=== PATIENT | female | born 1975 | race Caucasian/White ===

== ENCOUNTER → 2024-01-05 18:57 | Outpatient (REF) | payer OTHER, SELFPAY | LOC: WDC 18:57 | PROVIDERS: ATTENDING PHYSICIAN Radiology Radiation Oncology; FAMILY PHYSICIAN Nurse Practitioner Family | DX: Z12.31 Encounter for screening mammogram for malignant neoplasm of breast (principal) | CPT/HCPCS: 77063; 77067 ==

== ENCOUNTER → 2024-07-12 09:48 | Outpatient (REF) | payer OTHER, SELFPAY | LOC: WDC 09:48 | PROVIDERS: ATTENDING PHYSICIAN Family Medicine Geriatric Medicine; FAMILY PHYSICIAN Nurse Practitioner Family | DX: R92.2 Inconclusive mammogram (principal) | CPT/HCPCS: 76641 ==

== ENCOUNTER → 2024-07-16 07:37 | Outpatient (REF) | payer OTHER, SELFPAY ==
--- NOTE | 2024-07-16 14:13 | OID.BR.INTR ---
OID Breast Navigator - Initial
- -
Date of Contact: 07/16/24
Met with patient. Reviewed navigator services available at [facility]. Will follow up as needed per protocol.
== END ==
LOC: WDC 07:37
PROVIDERS: ATTENDING PHYSICIAN Family Medicine Geriatric Medicine; FAMILY PHYSICIAN Nurse Practitioner Family
DX: N63.32 Unspecified lump in axillary tail of the left breast (principal)
CPT/HCPCS: 88305; 19083; A4648

== ENCOUNTER → 2024-08-03 07:36 | Outpatient (REF) | payer OTHER, SELFPAY | LOC: MRI 3T 07:36 | PROVIDERS: ATTENDING PHYSICIAN Surgery; FAMILY PHYSICIAN Nurse Practitioner Family | DX: C50.412 Malignant neoplasm of upper-outer quadrant of left female breast (principal); Z17.0 Estrogen receptor positive status [ER+] | CPT/HCPCS: 77049; A9585 ==

== ENCOUNTER → 2024-08-11 10:49 | Outpatient (REF) | payer OTHER, SELFPAY | LOC: RCS 10:49 | PROVIDERS: ATTENDING PHYSICIAN Internal Medicine Hematology & Oncology; FAMILY PHYSICIAN Nurse Practitioner Family | DX: C50.412 Malignant neoplasm of upper-outer quadrant of left female breast (principal) | CPT/HCPCS: 93306; 93356 ==

== ENCOUNTER → 2024-08-17 08:42 | Outpatient (REF) | payer OTHER, SELFPAY ==
[2024-08-17 09:11] VITALS: BP 119/73; BP_SYST 84
[2024-08-17] MEDS: ANCEF 10 IV (09:23)
[2024-08-17 11:00] VITALS: BP 127/57
== END ==
LOC: RADI 08:42
PROVIDERS: ATTENDING PHYSICIAN Internal Medicine Hematology & Oncology
DX: C50.412 Malignant neoplasm of upper-outer quadrant of left female breast (principal)
CPT/HCPCS: 36561; 76937; 77001; 99152; 99153; C1788

== ENCOUNTER → 2024-09-28 13:15 | Outpatient (REF) | payer OTHER, SELFPAY ==
[2024-09-28 14:27] LABS: Hematocrit 32.1 % (37.0-47.0); Hemoglobin 10.7 g/dL (12.0-16.0); Mean Corp Hgb Conc. 33.3 g/dL (33.0-37.0); Mean Corpuscular Hgb 27.7 pg (27.0-31.0); Mean Corpuscular Volume 83.2 fL (81.0-99.0); Mean Platelet Volume 10.3 fL (7.4-10.4); Platelet Count 208 10^3/uL (130-400); Red Blood Cell Count 3.86 10^6/uL (4.20-5.40); Red Cell Dist. Width 15.2 % (11.5-14.5); White Blood Cell Count 5.8 10^3/uL (4.8-10.8)
[2024-09-28 15:07] LABS: Absolute Neutrophils -Man Diff 3.3 10^3/uL (1.4-6.5); Band Neutrophils 1 % (0-3); Lymphocytes 15 % (20-51); Segmented Neutrophils 57 % (42-75)
[2024-09-28 15:08] LABS: Eosinophils 1 % (0-6); Metamyelocytes 1 % (-); Monocytes 20 % (2-9); Myelocytes 5 % (-); Normal RBC Morphology Yes; Platelets Checked Yes; Total Cells Counted 100
== END ==
LOC: REG 13:15
PROVIDERS: ATTENDING PHYSICIAN Internal Medicine Hematology & Oncology; FAMILY PHYSICIAN Nurse Practitioner Family
DX: C50.412 Malignant neoplasm of upper-outer quadrant of left female breast (principal)
CPT/HCPCS: 36415; 85025

== ENCOUNTER → 2024-10-12 08:23 | Outpatient (REF) | payer OTHER, SELFPAY ==
[2024-10-12 09:11] LABS: Hematocrit 31.2 % (37.0-47.0); Hemoglobin 10.4 g/dL (12.0-16.0); Mean Corp Hgb Conc. 33.3 g/dL (33.0-37.0); Mean Corpuscular Hgb 28.7 pg (27.0-31.0); Mean Corpuscular Volume 86.2 fL (81.0-99.0); Mean Platelet Volume 10.2 fL (7.4-10.4); Platelet Count 162 10^3/uL (130-400); Red Blood Cell Count 3.62 10^6/uL (4.20-5.40); Red Cell Dist. Width 17.1 % (11.5-14.5); White Blood Cell Count 3.6 10^3/uL (4.8-10.8)
[2024-10-12 09:51] LABS: ALT (SGPT) 19 U/L (0-35); AST (SGOT) 25 U/L (14-36); Albumin 3.9 g/dl (3.5-5.0); Alkaline Phosphatase 64 U/L (38-126); Blood Urea Nitrogen 9 mg/dl (7-17); Calcium 9.3 mg/dl (8.4-10.2); Carbon Dioxide 29 mmol/L (22-30); Chloride 105 mmol/L (98-107); Glucose 111 mg/dl (70-99); Potassium 4.5 mmol/L (3.5-5.1); Sodium 142 mmol/L (135-145); Total Bilirubin 0.4 mg/dl (0.2-1.3); Total Protein 6.2 g/dl (6.3-8.2); eGFR > 60.00
[2024-10-12 10:44] LABS: Absolute Neutrophils -Man Diff 1.9 10^3/uL (1.4-6.5); Band Neutrophils 8 % (0-3); Lymphocytes 16 % (20-51); Metamyelocytes 4 % (-); Monocytes 20 % (2-9); Myelocytes 7 % (-); Normal RBC Morphology Yes; Platelets Checked Yes; Segmented Neutrophils 45 % (42-75); Total Cells Counted 100
== END ==
LOC: REG 08:23
PROVIDERS: ATTENDING PHYSICIAN Internal Medicine Hematology & Oncology; FAMILY PHYSICIAN Nurse Practitioner Family
DX: C50.412 Malignant neoplasm of upper-outer quadrant of left female breast (principal)
CPT/HCPCS: 36415; 80053; 85025

== ENCOUNTER → 2024-10-15 14:42 | Outpatient (REF) | payer OTHER, SELFPAY | LOC: RCS 14:42 | PROVIDERS: ATTENDING PHYSICIAN Internal Medicine Cardiovascular Disease; FAMILY PHYSICIAN Nurse Practitioner Family | DX: R06.09 Other forms of dyspnea (principal); R00.0 Tachycardia, unspecified | CPT/HCPCS: 93306; 93356 ==

== ENCOUNTER → 2024-11-08 09:46 | Outpatient (REF) | payer OTHER, SELFPAY ==
[2024-11-08 10:30] LABS: % Basophils 1.6 % (0-2); % Eosinophils 6.9 % (0-6); % Immature Granulocytes 1.1 % (0-0.5); % Lymphocytes 14.6 % (20.5-51.1); % Monocytes 13.2 % (1.7-9.3); % Neutrophils 62.6 % (42.2-75.2); Absolute Basophils 0.1 10^3/uL (0-0.2); Absolute Eosinophils 0.3 10^3/uL (0-0.7); Absolute Lymphocytes 0.6 10^3/uL (1.2-3.4); Absolute Monocytes 0.5 10^3/uL (0.1-0.6); Absolute Neutrophils 2.4 10^3/uL (1.4-6.5); Hematocrit 33.1 % (37.0-47.0); Hemoglobin 11.1 g/dL (12.0-16.0); Mean Corp Hgb Conc. 33.5 g/dL (33.0-37.0); Mean Corpuscular Hgb 30.2 pg (27.0-31.0); Mean Corpuscular Volume 90.2 fL (81.0-99.0); Mean Platelet Volume 10.4 fL (7.4-10.4); Nucleated Red Blood Cells % 0 %; Platelet Count 201 10^3/uL (130-400); Red Blood Cell Count 3.67 10^6/uL (4.20-5.40); Red Cell Dist. Width 17.7 % (11.5-14.5); White Blood Cell Count 3.8 10^3/uL (4.8-10.8)
[2024-11-08 10:58] LABS: ALT (SGPT) 39 U/L (0-35); AST (SGOT) 37 U/L (14-36); Albumin 3.7 g/dl (3.5-5.0); Alkaline Phosphatase 47 U/L (38-126); Blood Urea Nitrogen 8 mg/dl (7-17); Calcium 9.1 mg/dl (8.4-10.2); Carbon Dioxide 27 mmol/L (22-30); Chloride 105 mmol/L (98-107); Glucose 109 mg/dl (70-99); Potassium 4.4 mmol/L (3.5-5.1); Sodium 139 mmol/L (135-145); Total Bilirubin 0.6 mg/dl (0.2-1.3); Total Protein 6.1 g/dl (6.3-8.2); eGFR > 60.00
== END ==
LOC: RAD 09:46
PROVIDERS: ATTENDING PHYSICIAN Internal Medicine Hematology & Oncology; FAMILY PHYSICIAN Nurse Practitioner Family
DX: C50.412 Malignant neoplasm of upper-outer quadrant of left female breast (principal)
CPT/HCPCS: 36415; 71046; 80053; 85025

== ENCOUNTER → 2024-11-11 15:32 | Outpatient (REF) | payer OTHER, SELFPAY | LOC: RAD 15:32 | PROVIDERS: ATTENDING PHYSICIAN Nurse Practitioner Adult Health | DX: C50.412 Malignant neoplasm of upper-outer quadrant of left female breast (principal) | CPT/HCPCS: 71260; Q9967 ==

== ENCOUNTER → 2024-11-15 09:12 | Outpatient (REF) | payer OTHER, SELFPAY ==
[2024-11-15 10:51] LABS: Hematocrit 32.1 % (37.0-47.0); Hemoglobin 10.5 g/dL (12.0-16.0); Mean Corp Hgb Conc. 32.7 g/dL (33.0-37.0); Mean Corpuscular Hgb 29.1 pg (27.0-31.0); Mean Corpuscular Volume 88.9 fL (81.0-99.0); Mean Platelet Volume 10.5 fL (7.4-10.4); Platelet Count 226 10^3/uL (130-400); Red Blood Cell Count 3.61 10^6/uL (4.20-5.40); Red Cell Dist. Width 16.8 % (11.5-14.5)
[2024-11-15 10:57] LABS: ALT (SGPT) 35 U/L (0-35); AST (SGOT) 34 U/L (14-36); Albumin 3.9 g/dl (3.5-5.0); Alkaline Phosphatase 55 U/L (38-126); Blood Urea Nitrogen 10 mg/dl (7-17); Calcium 9.1 mg/dl (8.4-10.2); Carbon Dioxide 27 mmol/L (22-30); Chloride 104 mmol/L (98-107); Glucose 115 mg/dl (70-99); Potassium 4.4 mmol/L (3.5-5.1); Sodium 140 mmol/L (135-145); Total Bilirubin 0.6 mg/dl (0.2-1.3); Total Protein 6.2 g/dl (6.3-8.2); eGFR > 60.00
[2024-11-15 11:50] LABS: Absolute Neutrophils -Man Diff 2.9 10^3/uL (1.4-6.5); Band Neutrophils 12 % (0-3); Eosinophils 9 % (0-6); Lymphocytes 12 % (20-51); Monocytes 20 % (2-9); Platelets Checked Yes; Segmented Neutrophils 47 % (42-75)
[2024-11-15 11:51] LABS: Anisocytosis 1+; Hypochromasia 1+; Normal RBC Morphology No; Ovalocytes 1+; Polychromasia 1+; Total Cells Counted 100
== END ==
LOC: REG 09:12
PROVIDERS: ATTENDING PHYSICIAN Internal Medicine Hematology & Oncology; FAMILY PHYSICIAN Nurse Practitioner Family
DX: C50.412 Malignant neoplasm of upper-outer quadrant of left female breast (principal)
CPT/HCPCS: 36415; 80053; 85025

== ENCOUNTER → 2024-12-06 18:37 | Outpatient (REF) | payer OTHER, SELFPAY | LOC: MRI 3T 18:37 | PROVIDERS: ATTENDING PHYSICIAN Internal Medicine Hematology & Oncology; FAMILY PHYSICIAN Nurse Practitioner Family | DX: C50.412 Malignant neoplasm of upper-outer quadrant of left female breast (principal) | CPT/HCPCS: 77049; A9585 ==

== ENCOUNTER → 2024-12-07 16:54 | Outpatient (REF) | payer OTHER, SELFPAY | LOC: RAD 16:54 | PROVIDERS: ATTENDING PHYSICIAN Surgery Plastic and Reconstructive Surgery; FAMILY PHYSICIAN Nurse Practitioner Family | DX: C50.912 Malignant neoplasm of unspecified site of left female breast (principal) | CPT/HCPCS: 74174; Q9967 ==

== ENCOUNTER → 2024-12-22 07:55 | Outpatient (REF) | payer OTHER, SELFPAY | LOC: RCS 07:55 | PROVIDERS: ATTENDING PHYSICIAN Surgery Plastic and Reconstructive Surgery; FAMILY PHYSICIAN Nurse Practitioner Family | DX: C50.412 Malignant neoplasm of upper-outer quadrant of left female breast (principal) | CPT/HCPCS: 93005 ==

== ENCOUNTER → 2024-12-23 08:17 | Outpatient (REF) | payer OTHER, SELFPAY | LOC: WDC 08:17 | PROVIDERS: ATTENDING PHYSICIAN Surgery | DX: C50.412 Malignant neoplasm of upper-outer quadrant of left female breast (principal) | CPT/HCPCS: 38792; 76942; A9541 ==

== ENCOUNTER 2024-12-24 07:33 | Inpatient (IN) | payer OTHER, SELFPAY ==
[2024-12-15 11:09] LABS: Mean Corp Hgb Conc. 32.5 g/dL (33.0-37.0); Mean Corpuscular Hgb 28.5 pg (27.0-31.0); Mean Corpuscular Volume 87.7 fL (81.0-99.0); Mean Platelet Volume 11.1 fL (7.4-10.4); Platelet Count 222 10^3/uL (130-400); Red Blood Cell Count 4.56 10^6/uL (4.20-5.40); Red Cell Dist. Width 14.1 % (11.5-14.5); White Blood Cell Count 4.6 10^3/uL (4.8-10.8)
[2024-12-15 11:52] LABS: ALT (SGPT) 39 U/L (0-35); AST (SGOT) 37 U/L (14-36); Albumin 4.4 g/dl (3.5-5.0); Alkaline Phosphatase 53 U/L (38-126); Blood Urea Nitrogen 11 mg/dl (7-17); Calcium 9.7 mg/dl (8.4-10.2); Carbon Dioxide 29 mmol/L (22-30); Chloride 106 mmol/L (98-107); Glucose 113 mg/dl (70-99); Potassium 4.7 mmol/L (3.5-5.1); Sodium 142 mmol/L (135-145); Total Bilirubin 0.5 mg/dl (0.2-1.3); Total Protein 7.5 g/dl (6.3-8.2); eGFR > 60.00
[2024-12-15 11:58] LABS: Prealbumin (Transthyretin) 23.7 mg/dl (17.6-36.0)
[2024-12-15 12:11] LABS: Vitamin D, 25-OH*** 34.2 ng/mL (30-80)
[2024-12-15 13:30] VITALS: BMI 34.9
[2024-12-24] VITALS (14 sets, daily range): BP systolic 0–126; BP diastolic 49–77; BMI 34.9
[2024-12-24] MEDS: LOVENOX 40 MG SC (08:11)
[2024-12-24] MEDS: NORMOSOL-R/PLASMALYTE-A 1000 IV (08:12)
[2024-12-24] MEDS: TRANSDERM-SCOP 1 PATCH TRANSDERM (08:12)
[2024-12-24] MEDS: TYLENOL 1000 MG PO ×2 (08:12→17:51)
--- NOTE | 2024-12-24 08:29 | W.SUR.PREOP ---
Pre-Operative Surgical Note
-
I have examined this patient prior to the performance of the scheduled procedure.
The patient's condition is unchanged from the time of the current History and
Physical and the patient is able to undergo the scheduled procedure.
--- NOTE | 2024-12-24 13:29 | W.IMMPOSTOP ---
Surgical Immed Post Op Note
-
Primary Surgeon: PÉREZ Mae MD
Assisting Surgeon:
Pre-op Diagnosis: left breast cancer
Post-op Diagnosis: same
Procedure Performed: immediate reconstruction of bilateral breast with tissue expanders
Anesthesia Type: General
Specimen / Cultures: Per Dr. Thacker
Estimated Blood Loss: 30 cc
Complications: none
Operative Findings: as expected
--- NOTE | 2024-12-24 13:30 | OR.RPT ---
Operative Report
Operative Report
Date of surgery: 12/24/2024
Surgeon: PÉREZ Mae MD
Preoperative diagnosis: Breast cancer
Postoperative diagnosis: Same
Procedure:
1. Bilateral immediate breast reconstruction with prepectoral tissue expanders
Complications: None
Anesthesia: General
EBL: 30cc total
Employee Benefits Administrator size: 13 cm
Indications for procedure: Patient was referred to me by Dr. Thacker with a recent diagnosis of recurrent breast cancer. She was planned to undergo bilateral mastectomy. We discussed her options for breast reconstruction at length including
implant based and autologous options. The patient opted for immediate reconstruction with tissue expanders. She understands that the final reconstruction will be staged. We also discussed the possible use of ADM and spy angiography. Risks
include reconstructive failure, capsular contracture, infection, delayed wound healing, mastectomy skin flap necrosis, hematoma, seroma and need for repeat procedure. Patient understood these risks and desired to proceed. Consents were signed
accordingly.
Procedure in detail: Patient was identified the preoperative area and the surgical site was confirmed to be the bilateral breast. All questions were answered and consents were confirmed. Patient was then sat upright and normal anatomical landmarks
were marked including midline and inframammary fold. Patient was then taken back to the operating room placed supine on the table. She was prepped and draped in the usual sterile fashion using ChloraPrep solution. A Sandoval catheter was placed. A
timeout for patient safety was performed was confirmed that bilateral SCDs were in place and preoperative antibiotics administered. The procedure began with Dr. Thacker first performing the mastectomy. Her op report will be dictated separately.
When I entered the procedure, the first sided mastectomy had been completed. As such I inspected the wound bed of the chest wall and ensured meticulous hemostasis. The base width was measured and appropriate tissue certified diabetes educator was selected. The
certified diabetes educator was then sutured to the chest wall with a series of 2-0 silk sutures. Pectoralis and intercostal blocks were performed with Marcaine. 2 drains were then placed in the preaxial area line with a long subcutaneous tunnel and sutured in place
with 2-0 Prolene sutures. The wound was irrigated with double antibiotic solution and dilute Betadine. The mastectomy incisions were then closed with a series of 2-0 Vicryl's in the deep subcutaneous tissues followed by 3-0 and 4-0 Monocryl's in
the deep dermis and superficial skin.
Attention was then placed on the contralateral side after completion of the mastectomy. The exact same procedure was performed. An certified diabetes educator of the same size was opened and soaked in Betadine. The construct was then sutured to the chest wall using
2-0 silks. Pectoralis and intercostal blocks were performed. Meticulous hemostasis was ensured and the wound was irrigated with combination of double antibiotic solution consisting of Ancef and gentamicin as well as dilute Betadine. The wound was
closed in layers with 2-0 Vicryl followed by 3-0 Monocryl and 4-0 Monocryl superficial skin.
The wounds were dressed accordingly and a supportive bra was placed. The patient was extubated taken to the PACU for further care. All counts were correct at the end the case was performed out complication.
--- NOTE | 2024-12-24 13:56 | W.IMMPOSTOP ---
Surgical Immed Post Op Note
-
Primary Surgeon: Kedar
Assisting Surgeon: None
Pre-op Diagnosis: Recurrent left breast carcinoma
Post-op Diagnosis: Same
Procedure Performed: Bilateral mastectomies, targeted left axillary dissection
Anesthesia Type: GET
Specimen / Cultures: bilateral breasts, left sentinel lymph nodes and axillary contents
Estimated Blood Loss: 25cc
Complications: None
Operative Findings: None
--- NOTE | 2024-12-24 13:58 | OR.RPT ---
Operative Report
Operative Report
Date of surgery: 12/24/2024
Preoperative diagnosis: Recurrent left breast carcinoma
Postoperative diagnosis: Same
Surgeon: Kedar
Procedure: Bilateral mastectomies, targeted left axillary lymph node sampling and dissection
Patient is a 49-year-old female who been treated for left-sided breast carcinoma approximately 3 years ago. She presented with recurrence in her axilla. 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
tissue. The patient received neoadjuvant chemotherapy and the patient underwent technetium radiotracer injection on the day prior to the procedure. She plans to have immediate reconstruction initially with tissue expanders to be followed later by
bilateral FARIBA flaps.
The patient presented to same-day surgical services where she was prepped. Plastic surgery marked her incisions were which were in a vertical pattern incorporating removal of the nipple areolar complex. DVT and antibiotic prophylaxis were
provided. She was taken to the operating room. In the supine position, general anesthesia was induced. Sandoval catheter was inserted using aseptic technique and both breasts were prepped and draped in the usual sterile fashion. I began the
procedure by performing the right lumpectomy. A circumareolar incision was made sharply with the blade. Skin flaps were elevated using the PlasmaBlade and a lighted retractor. Dissection was carried down to the pectoralis fascia and the breast
was taken off the chest wall in a superior to inferior direction. The specimen was oriented for the pathologist and sent for permanent analysis. Hemostasis was verified and a moist pack was placed in the resection cavity. At this juncture plastic
surgery entered to begin the reconstructive portion of the procedure.
Then attention was turned to the left side where in the same manner, a mastectomy was performed, however, due to the neoadjuvant chemotherapy, blue dye was injected into the breast parenchyma. External massage was applied for 5 minutes. Skin flaps
on this side were raised in the same fashion as on the right. The breast was taken off the chest wall and the specimen was oriented for the pathologist and sent for permanent analysis. A very fibrous reaction in the left axillary tail towards the
axilla was encountered. Old scar was mobilized and dissection was carried down to clavipectoral fascia. Using the gamma probe and visualization of the blue dye four sentinel node packets were encountered and excised. Clinically these were
consistent with fibrofatty tissue that looked reactive to prior treatment. Additional palpable probable nodes were excised as well. An intercostal brachial nerve was preserved throughout its course and care was taken not to dissect on or above the
axillary vein. Tissues of the axilla were sent en bloc and hemoclips were placed to the note the boundaries of the axilla. A moist pack was placed on this side and plastic surgery to be began reconstruction on the left side.
At this juncture all sponge needle instrument counts were correct.
([id number])
Darrow Node Bx Breast Cancer
Darrow Node Bx Breast Cancer
Operation performed with curative intent: Yes
Tracer(s) to ID Darrow Nodes in Non-Neoadjuvant setting: N/A
Tracer(s) to ID Sentinal Nodes in the Neoadjuvant Setting: Dye and Radioactive Tracer
All nodes at end of dye-filled Lymphatic Channel removed: Yes
All Significantly Radioactive Nodes were removed: Yes
All Palpably Suspicious Nodes were Removed: Yes
Bx Proven Pos Nodes Marked Prior to Chemo ID'd & Removed: Yes
[2024-12-24] MEDS: SUBLIMAZE 25 MCG IV ×4 (14:06→15:12)
[2024-12-24] MEDS: NEURONTIN 300 MG PO ×2 (17:51→21:21)
[2024-12-24] MEDS: ANCEF 5 IV (21:21)
[2024-12-25] MEDS: TYLENOL 1000 MG PO ×3 (00:01→12:02)
[2024-12-25 03:15] VITALS: BP 99/62
[2024-12-25] MEDS: ANCEF 5 IV (05:14)
[2024-12-25 05:17] LABS: Hematocrit 34.7 % (37.0-47.0); Hemoglobin 11.3 g/dL (12.0-16.0)
[2024-12-25 05:42] LABS: Blood Urea Nitrogen 9 mg/dl (7-17); Carbon Dioxide 27 mmol/L (22-30); Chloride 110 mmol/L (98-107); Estimated Creatinine Clearance > 125 ml/min; Glucose 111 mg/dl (70-99); Potassium 4.4 mmol/L (3.5-5.1); Sodium 140 mmol/L (135-145); eGFR > 60.00
[2024-12-25 07:00] VITALS: BP 143/64
--- NOTE | 2024-12-25 08:35 | W.PN.PLAS ---
Progress Note
Subjective Data
Doing well
Denies SOB
Objective Data
Vital Signs
Temp Pulse Resp BP Pulse Ox
98 F 82 18 143/64 96
12/25/24 07:00 12/25/24 07:00 12/25/24 07:00 12/25/24 07:00 12/25/24 07:00
Intake and Output
12/24/24 12/25/24 12/26/24
06:59 06:59 06:59
Intake Total 630 / 630
Output Total 570 / 570
Balance 60 / 60
Intake:
Oral fluids 480 / 480
IV fluids (Total) 150 / 150
normosol 150 / 150
Output:
Drain Output (Total) 220 / 220
Left Breast Dov-Mas A 65 / 65
Left Breast Dov-Mas B 20 / 20
Right Breast Dov-Mas A 75 / 75
Right Breast Dov-Mas B 60 / 60
Urine, Sandoval 350 / 350
Other:
Number of approximated MODERATE 2
amounts of urine
PEx:
NAD
No increased WOB
Bilateral breasts with expanders in place
No undrained collections
Drains serosang with appropriate output
Lab Results
12/25/24 04:40
12/25/24 04:40
Assessment / Plan
s/p bilateral mastectomy and immediate recyclable materials sorter reconstruction
Discharge to home with VN
[2024-12-25] MEDS: NEURONTIN 300 MG PO (08:37)
[2024-12-25] MEDS: ZOLOFT 100 MG PO (08:37)
[2024-12-25 11:00] VITALS: BP 135/65
--- NOTE | 2024-12-25 11:06 | CM ---
Initial assessment completed with patient with and son in the room. Patient lives with her and 4 children (12-14-18-20 y/o) in a 2 story home plus basement with B/B on 2nd and 1/2 bath on 1st, 2 steps to enter. SECOND VP HR ASSESSMENT patient was
independent in ADL's and ambulation and drove.
No DME or in-home services. Does have a HC-POA. INTERNAL SPECIALIST is Kiara Whitlock and pharmacy is [facility] in [place]. Discharge POC: Home with [facility] RN services.
--- NOTE | 2024-12-25 13:19 | CM ---
Patient has been medically cleared for discharge to home with [facility] VN services. HH aware that services are to begin Friday12/26/24 for drain care. transported home.
== END 2024-12-25 12:45 | disposition home health service (06) | DRG 581 ==
LOC: 2 SOUTH 07:33
PROVIDERS: ADMITTING PHYSICIAN Surgery Plastic and Reconstructive Surgery; ATTENDING PHYSICIAN Surgery; FAMILY PHYSICIAN Nurse Practitioner Family
PROC: 0HHV0NZ Insertion of Tissue Expander into Bilateral Breast, Open Approach (ICD-10-PCS; 2024-12-24)
PROC: 07B60ZX Excision of Left Axillary Lymphatic, Open Approach, Diagnostic (ICD-10-PCS; 2024-12-24)
PROC: 0HTV0ZZ Resection of Bilateral Breast, Open Approach (ICD-10-PCS; 2024-12-24)
DX: C50.912 Malignant neoplasm of unspecified site of left female breast (principal); Z92.3 Personal history of irradiation; Z92.21 Personal history of antineoplastic chemotherapy
CPT/HCPCS: 36415; 80048; 80053; 82306; 84134; 85014; 85018; 85027; 88305; 88307; 88331; 88332; 88341; 88342; 97166; C1729; C1789; L8000

== ENCOUNTER → 2025-01-10 08:56 | Outpatient (REF) | payer OTHER, SELFPAY ==
[2025-01-10 09:58] LABS: Hematocrit 38.9 % (37.0-47.0); Hemoglobin 12.4 g/dL (12.0-16.0); Mean Corp Hgb Conc. 31.9 g/dL (33.0-37.0); Mean Corpuscular Volume 85.3 fL (81.0-99.0); Nucleated Red Blood Cells % 0 %; Platelet Count 218 10^3/uL (130-400); Red Cell Dist. Width 14.0 % (11.5-14.5)
[2025-01-10 11:15] LABS: ALT (SGPT) 28 U/L (0-35); AST (SGOT) 34 U/L (14-36); Albumin 4.2 g/dl (3.5-5.0); Alkaline Phosphatase 55 U/L (38-126); Blood Urea Nitrogen 13 mg/dl (7-17); Calcium 9.7 mg/dl (8.4-10.2); Carbon Dioxide 30 mmol/L (22-30); Chloride 106 mmol/L (98-107); Glucose 139 mg/dl (70-99); Potassium 4.7 mmol/L (3.5-5.1); Sodium 140 mmol/L (135-145); Total Protein 6.9 g/dl (6.3-8.2); eGFR > 60.00
== END ==
LOC: REG 08:56
PROVIDERS: ATTENDING PHYSICIAN Internal Medicine Hematology & Oncology; FAMILY PHYSICIAN Nurse Practitioner Family
DX: C50.412 Malignant neoplasm of upper-outer quadrant of left female breast (principal)
CPT/HCPCS: 36415; 80053; 85025

== ENCOUNTER 2025-01-25 06:07 | Inpatient (IN) | payer OTHER, SELFPAY ==
[2025-01-25] VITALS (20 sets, daily range): BP systolic 103–131; BP diastolic 55–80; BMI 35.2
[2025-01-25] MEDS: NORMOSOL-R/PLASMALYTE-A 1000 IV (06:48)
[2025-01-25] MEDS: LOVENOX 40 MG SC (06:48)
--- NOTE | 2025-01-25 07:14 | W.SUR.PREOP ---
Pre-Operative Surgical Note
-
I have examined this patient prior to the performance of the scheduled procedure.
The patient's condition is unchanged from the time of the current History and
Physical and the patient is able to undergo the scheduled procedure.
The patient will also undergo port removal today.
--- NOTE | 2025-01-25 15:39 | OR.RPT ---
Operative Report
Operative Report
Date of Service: 01/25/25
Surgeon: Roland Wilks MD
Co-Surgeon: Deniz Mae MD
Assisting Surgeon: Lou Thacker MD
Preoperative diagnosis:
1. Personal history of breast cancer
2. 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
3. Prior left breast radiation
Postoperative diagnosis: Same
Procedure:
1. Bilateral removal of tissue expanders without replacement
2. Bilateral capsulotomies and partial capsulectomies
3. Bilateral delayed FARIBA flap breast reconstruction
4. Bilateral local tissue rearrangements of the breasts measuring 4x4cm on each side
5. Right internal mammary lymph node biopsy
6. Application of BEATRIZ disposable negative pressure incisional wound VAC.
Anesthesia: General
EBL: 150 cc
Specimens:
1. Right internal mammary lymph node
2. Right mastectomy skin and soft tissue
3. Left mastectomy skin and soft tissue
Drains: 4 15 [place] Rey drains
Complications: None
Indications: This is a 49-year-old female who has a history of breast cancer and bilateral mastectomies with lead php developer based breast reconstruction. She has a history of left breast radiation and had decided to move forward with autologous
reconstruction. She was referred to me by her primary plastic surgeon, Dr. Mae. I discussed the various options available to her. She was interested in pursuing autologous reconstruction with tissue from her abdomen and she had acceptable donor
site. Risks of the procedure were discussed including flap failure, return to OR for arterial or venous thrombosis, wound healing issues, donor site morbidity to the abdomen and VTE.� We reviewed the nature of the procedure and the risk benefits and
alternatives at length.� All her questions were answered.� Consent was signed prior to surgery.
Operative findings:
The patient was brought to the operating room and placed supine on the operating room table. General anesthesia was induced with endotracheal tube.� A Sandoval catheter was placed.� Patient was prepped and draped in the standard fashion using
chlorhexidine prep.� A timeout was performed.
Dr. Mae and I started the dissection of the flaps in the abdomen together until we were able to confirm the flap dimensions and start the clinical coordinator dissection. Once i starting performing the clinical coordinator dissection on the right hemiabdomen, "Vanessa"Tu went up to the left chest to perform the internal mammary vessel dissection.� This involved dissection of the abdominal wall and identification of perforating vessels into the abdominal flaps bilaterally.� On the patient's right side a 4
clinical coordinator FARIBA flap was dissected.� This involved minimal muscle to minimize the morbidity to the abdominal wall.� The flap was dissected down to the source vessels where the inferior epigastrics were coming off of the external iliac. The abdominal
vessel dissection was particularly challenging due to the multiple prior C-sections the patient had. Her mammary vessel dissection was also difficult due to her prior radiation.
On the contralateral side another 3 clinical coordinator FARIBA flap was also dissected.� This similarly involved a tedious dissection where the inferior epigastrics were traced down to their source vessel in a muscle sparing approach.
As Tu Sheets was working on the left jasmine abdomen, I then performed the internal mammary vessel dissection on the left side.
On both sides, the lead php developer was removed and extensive capsulotomies were performed to radially expand the pocket. The third rib was resected bilaterally. The internal mammary arteries and veins were identified and carefully circumferentially
dissected. Internal mammary lymph nodes were encountered on the right and these were sent off for pathologic evaluation.
The right flap was harvested from the abdomen and transferred to the left chest wall first as this was the radiated side.� Microvascular anastomosis was then performed to the internal mammary vessels.� This was done using a 2.5 millimeter armature winder helper repair
for the venous anastomosis.� The arterial anastomosis was performed using 8-0 nylon suture in the normal standard fashion.
After the microvascular anastomosis was performed there was excellent perfusion of the flap.� This was temporarily inset and attention was turned to the contralateral breast.
The right hemiabdomen was then transferred to the left chest wall.� The identical procedure was then performed from a microvascular perspective.� This side was with a 4.0 mm armature winder helper repair for the venous anastomosis and 8-0 nylon suture for the arterial
anastomosis. This flap similarly had excellent perfusion afterwards.
While I was performing a microvascular anastomosis on the chest wall, my co-surgeon, Dr. Mae, was dissecting the other FARIBA flap in the abdomen.� We then switched roles for the contralateral sides.
The abdominal wall was reconstructed using a piece of phasix mesh in an underlay fashion.� The fascia was primarily closed bilaterally. The abdominal wall was then closed in a layered fashion.� This was done after performing a tap block using
marcaine divided evenly amongst the hemiabdomens.� Two 15 [place] rey drains were placed in the abdomen.� These were secured using 2-0 Prolene sutures.� The Urvashi's fascia was then reapproximated using 2-0 Vicryl suture.� The skin was then closed
in a layered fashion using insorb dermal daniel and a running Monocryl suture.
Bilateral pec and intercostal blocks were performed with marcaine and a 15 [place] rey drain was placed in each breast pocket.� These were also secured using 2-0 Prolene sutures.�
The breast flaps were then de-epithelialized and inset.�The breast skin was then further revised using 42mm cookie cutters to create a new window for the skin paddle bilaterally. This resulted in a 4x4cm local tissue rearrangement on each side. The
incisions were then closed in layered fashion using 3-0 and 4-0 Monocryl suture.� All incisions were dressed with Dermabond glue.� Hand-held Doppler signals were found in the reconstructed breasts and these were marked with a 5-0 Prolene suture. A
BEATRIZ incisional wound VAC was applied to the abdominal incision.
The patient tolerated the procedure very well.� All counts were correct at the completion of the case.� The patient was then extubated uneventfully and transferred to the ICU in stable condition.
Dr. Lalitah Mae was my co-surgeon for this case.� His status as a co-surgeon was critical and allowing us to function as two separate teams.� This allowed us to operate simultaneously on both the breasts and on each side of the abdomen.� This
was essential for the appropriate safety and efficiency of this procedure.
Dr. Thacker was our certified nursing assistant instructor for this case. She played a primary role in reconstructing the abdominal wall and her assistance was critical to allow for us to execute the surgery in a safe and timely manner.
--- NOTE | 2025-01-25 15:39 | OR.RPT ---
Operative Report
Operative Report
Date of operation: 01/25/2025
Surgeon: Kedar
Preoperative diagnosis: Left breast carcinoma status post bilateral mastectomies, bilateral tissue community integration specialist placement and chemotherapy
Postoperative diagnosis: Same
Procedure: removal of right Port-A-Cath, removal bilateral expanders, assist with bilateral FARIBA flaps, closure of iatrogenic ventral hernias with mesh
The patient is a 49-year-old female who underwent treatment for invasive lobular carcinoma of the left breast in 2021. She had a recurrence of the lobular carcinoma and underwent bilateral mastectomies, sentinel lymph node mapping and biopsy, and
Port-A-Cath placement for adjuvant chemotherapy. For the breast cancer in 2021, she did undergo postoperative radiotherapy. She had bilateral tissue expanders placed with planned delayed reconstruction with bilateral FARIBA flaps. Her port will be
removed and I will assist the plastic surgeons with the flaps and abdominal wall closure.
The patient presented to same-day surgical services where she was identified and prepped. DVT and antibiotic prophylaxis were provided. She was taken to the operating room and in the supine position general anesthesia was induced. Sandoval catheter
was inserted using aseptic technique and the chest and abdomen were prepped and draped in the usual sterile fashion. All team members performed an appropriate timeout procedure.
I incised the previous breast incisions which were vertical; the incision on the right side the was slightly hypertrophied and irregular and this was excised sharply. This led to the community integration specialist cavity allowing for community integration specialist removal. Moist packs were
placed and this procedure was performed on left sides. Concerning the right sided port, the incision site was excised as it had a hypertrophic scar. Dissection was carried down to the port pocket using the cautery and the port easily extruded.
The catheter was removed from the vascular tract intact and the tract was suture-ligated with 3-0 plain gut. Hemostasis was obtained with the cautery. The incision was closed using simple interrupted 3-0 plain on deep and subcutaneous tissue and
skin was closed with running subcuticular 4-0 Monocryl.
Then I assisted plastic surgeons through various phases of the FARIBA flap procedure. Once the flaps were harvested,there was a resulting defect in both anterior abdominal ronquillo. On the right side the defect was 2 x 15 cm. the defect on the left
side was 15 x 4 cm. A portion of Phasix mesh was cut and fashioned and placed under the anterior fascia. This was secured using simple interrupted figure of eight 0- PDS. Then an over locking STRATAFIX suture was run along the entire length of
the incision. Bilateral tap block was performed using .25% Marcaine on each side. Rey drains were passed through the inferior abdominal wall opening and secured to the skin using 2-0 Prolene suture. Once the anastomoses were performed by the
plastic surgeons then the abdominal wall diastases was imbricated by Dr. Mae as described in his dictation. Closure was as described in the Plastic surgeons dictations.
[id number]
--- NOTE | 2025-01-25 16:30 | CON.INTV ---
Consultation
Consultation Request
Date/Time Consultation Requested: 01/25/2025
Date/Time Consultation Performed: 01/25/2025
Requesting Provider: Dr. Mae
Performing Provider: Dr. Castrejon
Reason for Consultation: s/p FARIBA flap breast reconstruction
Medical History
-
Chief Complaint: Elective FARIBA flap breast reconstruction
History of Present Illness:
49-year-old F with PMHx of left-sided invasive breast lobular carcinoma (Dx 01/26/2021 - ER/VA +, HER2 -) s/p bilateral mastectomy + chemotherapy, asthma and seasonal allergies who p/w elective breast reconstruction. Pt follows with Dr. Thacker with
Breast Surgery as an outpatient - last visit 12/03/2024. She has Hx of left breast lumpectomy with SNL mapping and biopsy on 02/23/2021. She had received chemotherapy in Fall 2020 through [facility] via Dr. Schroeder. She has also
undergone radiation to her left breast. 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 She continued to obtain mammogram +
breast ultrasounds. Breast US on 07/12/2024 showed abnormal left axilla adenopathy. She underwent US-core needle Bx of her left axillary LN on 07/16/2024 and pathology showed recurrent invasive lobular carcinoma, which was ER +, and VA and HER2 -.
PET/CT on 07/29/2024 showed no evidence of metastasis. She has neoadjuvant chemo starting on 08/18/[address] Schroeder. She completed her chemo, and she underwent bilateral mastectomy with targeted left axillary dissection with immediate prepectoral
tissue yeast tender reconstruction on 12/24/2024. Today, she is here for removal of her expanders and for bilateral delayed FARIBA flap breast reconstruction. She also underwent right internal mammary LN biopsy, and removal of her right-sided
port-A-cath. EBL was 150cc with no immediate complications. She was TRX to ICU post-operatively, and [employer] consulted for additional recommendations/management.
PMHx: Left breast lobular carcinoma (2020) s/p lumpectomy + chemoradiation (2020), recurrent L-breast lobular carcinoma s/p neoadjuvant chemotherapy + bilateral mastectomy with immediate yeast tender reconstruction, asthma, seasonal allergies
PSHx: x4, D&C, left breast lumpectomy and SLN mapping (2020), bilateral mastectomies and left SLN resection, right port placement, BSO
Past Medical History
Past Medical History: Other (Above as per HPI)
Past Surgical History: Other (Above as per HPI)
Social History
Tobacco: Non-smoker
Alcohol: Occasional (socially)
Drug: None
Family History
Family History: Cancer (Mother + sister: Leukemia; Maternal grandmother: Breast cancer) and Diabetes (Father)
Allergies / Home Medications
Allergies
Allergy/AdvReac Type Severity Reaction Status Date / Time
pollen extracts Allergy SEASONAL Verified 01/25/25 06:35
ALLERGY
Home Medications
�Medication �Instructions �Recorded �Confirmed �Last Taken �Type
lidocaine-prilocaine 2.5 %-2.5 % 2.5 g topical ONCE 08/13/24 01/25/25 Unknown History
topical cream
albuterol sulfate 90 mcg/actuation 2 puff inhalation Q6H PRN SOB 12/17/24 01/25/25 Unknown History
aerosol inhaler
loratadine 10 mg tablet (Claritin) 10 mg PO DAILY 12/17/24 01/25/25 12/22/24 History
multivitamin 1 tab PO DAILY 12/17/24 01/25/25 1 Week Ago History
~01/18/25
diazepam 5 mg tablet 5 mg PO TIDPRN PRN Muscle Spasms 12/25/24 01/25/25 1 Week Ago Rx
14 days #42 tabs ~01/18/25
gabapentin 300 mg capsule 300 mg PO TID 90 days #270 caps 12/25/24 01/25/25 01/24/25 18:00 Rx
oxycodone 5 mg tablet 5 mg PO Q6HPRN PRN breakthrough 12/25/24 01/25/25 2 Weeks Ago Rx
mod-severe pain 14 days #20 tabs ~01/11/25
acetaminophen 500 mg tablet 1,000 mg PO Q6 PRN pain 01/20/25 01/25/25 01/22/25 History
(Tylenol Extra Strength)
sertraline 100 mg tablet 100 mg PO DAILY 01/20/25 01/25/25 01/24/25 09:00 History
Review of Systems
-
Unable to Obtain full review of systems at this time due to: Acuity (lethargic after arriving to ICU s/p OR due to sedation)
Vitals / Labs / Diagnostic Testing
Vital Signs
Temp Pulse Resp BP Pulse Ox
99.2 F 92 10 114/63 91
01/25/25 17:00 01/25/25 17:30 01/25/25 17:30 01/25/25 17:30 01/25/25 17:30
Lab Data
01/25/25 16:26
01/25/25 16:26
Laboratory Results
01/25/25
16:26
PT 14.1
INR 1.05
APTT 25.6
Diagnostic Testing:
Physical Exam
-
HEENT: Normocephalic and Anicteric
Cardiovascular: S1/S2 and Peripheral Edema (negative)
Respiratory: Wheeze (negative), Rales (negative), Rhonchi (negative) and Non-Labored Respirations
GI: Soft, Non Distended, Tender and Normal Bowel Sounds
Neurology: Tremors (negative) and Other (Lethargic due to recent sedation from OR)
Skin: Warm and Dry
General: Respiratory Distress (negative), Comfortable, Chills (negative) and Sweats (negative)
Assessment
-
Assessment: 49-year-old F with PMHx of left-sided invasive breast lobular carcinoma (Dx 01/26/2021 - ER/VA +, HER2 -) s/p lumpectomy + chemoradiation (2020), recurrent L-breast lobular carcinoma (ER+) s/p neoadjuvant chemotherapy + bilateral
mastectomy with immediate yeast tender reconstruction, asthma and seasonal allergies who p/w elective breast reconstruction. Pt follows with Dr. Thacker with Breast Surgery as an outpatient - last visit 12/03/2024. She has Hx of left breast lumpectomy
with SNL mapping and biopsy on 02/23/2021. She had received chemotherapy in Fall 2020 through [facility] via Dr. Schroeder. She has also undergone radiation to her left breast. She underwent genetic testing in February 2021 and this
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 She continued to obtain mammogram + breast ultrasounds. Breast US on 07/12/2024 showed abnormal left axilla adenopathy. She
underwent US-core needle Bx of her left axillary LN on 07/16/2024 and pathology showed recurrent invasive lobular carcinoma, which was ER +, and VA and HER2 -. PET/CT on 07/29/2024 showed no evidence of metastasis. She has neoadjuvant chemo starting
on 08/18/[address] Schroeder. She completed her chemo, and she underwent bilateral mastectomy with targeted left axillary dissection with immediate prepectoral tissue yeast tender reconstruction on 12/24/2024. Today, she is here for removal of her
expanders and for bilateral delayed FARIBA flap breast reconstruction. She also underwent right internal mammary LN biopsy, and removal of her right-sided port-A-cath. EBL was 150cc with no immediate complications. She was TRX to ICU
post-operatively, and [employer] consulted for additional recommendations/management.
Chronic conditions [employer]: Left breast lobular carcinoma (2020) s/p lumpectomy + chemoradiation (2020), recurrent L-breast lobular carcinoma s/p neoadjuvant chemotherapy + bilateral mastectomy with immediate yeast tender reconstruction, asthma, seasonal
allergies
Impression:
#Left breast lobular carcinoma (2020 - ER/VA +, HER2-) s/p lumpectomy + chemoradiation (2021), recurrent L-breast lobular carcinoma (ER+, VA and HER2-) s/p neoadjuvant chemotherapy + bilateral mastectomy with immediate yeast tender reconstruction now
with right Port-A-Cath removal, bilateral tissue yeast tender removal, bilateral capsulotomies and partial capsulectomies, bilateral delayed FARIBA flap breast reconstruction with bilateral local breast tissue rearrangement (POD #0)
#Iatrogenic ventral hernia s/p closure with mesh (POD #0)
#Mild intermittent asthma
#Hx of heterozygous NBN gene pathogenic variant s/p prophylactic BSO (06/2021) given her predisposition to ovarian and endometrial cancer
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
Plan:
Postoperative surgical intensive care unit monitoring
Follow up right internal mammary LN biopsy from OR today
Supplemental oxygen as needed to maintain SpO2 >90-94%
prn nebulized bronchodilators - not currently bronchospastic
Incentive spirometry encouraged 10x per hour for at least 4 hrs a day
Aspiration precautions
Pain control
Flap checks per vascular and breast surgery per protocol
Maintain MAP>65
Replete electrolytes with K>4, Mg>2
Maintain euglycemia with goal BG 140-180
Breast surgery + vascular surgery following - correspondence and operative notes reviewed
Transfuse blood products as needed to keep Hb>7g/dL, and plt>50k (given post-operative status)
DVT prophylaxis: LMWH
Early nutrition
Early mobilization
(Patient was seen and evaluated on 01/25/2025) Critical care statement: A total of 41 minutes of critical care time was provided for this patient today. This includes management of unstable vital signs, evaluation of the patient at bedside, reviewing
the patient's pertinent medical records including radiographs, microbiology, laboratory evaluations, and discussion with primary team, consultants, pharmacy, nutrition, physical therapy, case management, charge nurse, critical care nursing, and
respiratory therapy.
[2025-01-25 16:34] LABS: Glucose - Point of Care 140 mg/dl (70-99)
[2025-01-25 16:38] LABS: Hematocrit 36.0 % (37.0-47.0); Hemoglobin 11.6 g/dL (12.0-16.0); Mean Corp Hgb Conc. 32.2 g/dL (33.0-37.0); Mean Corpuscular Volume 84.9 fL (81.0-99.0); Nucleated Red Blood Cells % 0 %; Platelet Count 188 10^3/uL (130-400); Red Cell Dist. Width 14.2 % (11.5-14.5)
[2025-01-25 16:43] LABS: APTT 25.6 Sec (23.4-35.0); INR 1.05; PT 14.1 Sec (11.4-14.6)
--- NOTE | 2025-01-25 16:43 | W.IMMPOSTOP ---
Surgical Immed Post Op Note
-
Primary Surgeon: PÉREZ Mae MD
Assisting Surgeon: Roland Wilks MD; Lou Thacker MD
Pre-op Diagnosis: h/o Breast CA, s/p mstx
Post-op Diagnosis: Same
Procedure Performed: Bilateral FARIBA flap breast reconstruction
Anesthesia Type: GA
Specimen / Cultures: Per Dr. Thacker
Estimated Blood Loss: 100cc
Complications: None
Operative Findings: as expected
--- NOTE | 2025-01-25 16:43 | OR.RPT ---
Operative Report
Operative Report
Date of Service: 01/25/25
Surgeon: Deniz Mae MD
Co-Surgeon: Roland Wilks MD
Assisting Surgeon: Lou Thacker MD
Preoperative diagnosis:
1. Personal history of breast cancer
2. 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
3. Prior left breast radiation
Postoperative diagnosis: Same
Procedure:
1. Bilateral removal of tissue expanders without replacement
2. Bilateral capsulotomies and partial capsulectomies
3. Bilateral delayed FARIBA flap breast reconstruction
4. Bilateral local tissue rearrangements of the breasts measuring 4x4cm on each side
5. Right internal mammary lymph node biopsy
6. Application of BEATRIZ disposable negative pressure incisional wound VAC.
Anesthesia: General
EBL: 150 cc
Specimens:
1. Right internal mammary lymph node
2. Right mastectomy skin and soft tissue
3. Left mastectomy skin and soft tissue
Drains: 4 15 Hungarian Rey drains
Complications: None
Indications: This is a 49-year-old female who has a history of breast cancer and bilateral mastectomies with index clerk based breast reconstruction. She has a history of left breast radiation and had decided to move forward with autologous
reconstruction. She was referred to me by her breast surgeon, Dr. Thacker. I discussed the various options available to her. She was interested in pursuing autologous reconstruction with tissue from her abdomen and she had acceptable donor site.
Risks of the procedure were discussed including flap failure, return to OR for arterial or venous thrombosis, wound healing issues, donor site morbidity to the abdomen and VTE.� We reviewed the nature of the procedure and the risk benefits and
alternatives at length.� All her questions were answered.� Consent was signed prior to surgery. I consulted with Dr. Roland Wilks as my cosurgeon to reduce operative length and minimize complications, increase operative efficiency given two distinct
surgical sites.
Operative findings:
The patient was brought to the operating room and placed supine on the operating room table. General anesthesia was induced with endotracheal tube.� A Sandoval catheter was placed.� Patient was prepped and draped in the standard fashion using
chlorhexidine prep.� A timeout was performed.
Dr. Wilks and I started the dissection of the flaps in the abdomen together until we were able to confirm the flap dimensions and start the pony edger dissection. Once Dr. Wilks starting performing the pony edger dissection on the right hemiabdomen,
I went up to the left chest to perform the internal mammary vessel dissection.�
Flap dissection of the abdominal wall involved identification of perforating vessels into the abdominal flaps bilaterally.� On the patient's right side a 4 pony edger FARIBA flap was dissected.� This involved minimal muscle to minimize the morbidity
to the abdominal wall.� The flap was dissected down to the source vessels where the inferior epigastrics were coming off of the external iliac. The abdominal vessel dissection was particularly challenging due to the multiple prior C-sections the
patient had. Her mammary vessel dissection was also difficult due to her prior radiation.
On the contralateral side another 3 pony edger FARIBA flap was also dissected.� This similarly involved a tedious dissection where the inferior epigastrics were traced down to their source vessel in a muscle sparing approach.
As I was working on the left jasmine abdomen, Dr. Wilks then performed the internal mammary vessel dissection on the right chest.
On both sides, the index clerk was removed and extensive capsulotomies were performed to radially expand the pocket. The third rib was resected bilaterally. The internal mammary arteries and veins were identified and carefully circumferentially
dissected. Internal mammary lymph nodes were encountered on the right and these were sent off for pathologic evaluation.
The right flap was harvested from the abdomen and transferred to the left chest wall first as this was the radiated side.� Microvascular anastomosis was then performed to the internal mammary vessels.� This was done using a 2.5 millimeter pipeline executive
for the venous anastomosis.� The arterial anastomosis was performed using 8-0 nylon suture in the normal standard fashion.
After the microvascular anastomosis was performed there was excellent perfusion of the flap.� This was temporarily inset and attention was turned to the contralateral breast.
The left hemiabdomen was then transferred to the right chest wall.� The identical procedure was then performed from a microvascular perspective.� This side was with a 4.0 mm pipeline executive for the venous anastomosis and 8-0 nylon suture for the arterial
anastomosis. This flap similarly had excellent perfusion afterwards.
While I was performing a microvascular anastomosis on the chest wall, my co-surgeon, Dr. Wilks, was dissecting the other FARIBA flap in the abdomen.� We then switched roles for the contralateral sides.
The abdominal wall was reconstructed using a piece of phasix mesh in an underlay fashion.� The fascia was primarily closed bilaterally. The abdominal wall was then closed in a layered fashion.� This was done after performing a tap block using
marcaine divided evenly amongst the hemiabdomens.� Two 15 Hungarian rey drains were placed in the abdomen.� These were secured using 2-0 Prolene sutures.� The Urvashi's fascia was then reapproximated using 2-0 Vicryl suture.� The skin was then closed
in a layered fashion using insorb dermal daniel and a running Monocryl suture.
Bilateral pec and intercostal blocks were performed with marcaine and a 15 Hungarian rey drain was placed in each breast pocket.� These were also secured using 2-0 Prolene sutures.�
The breast flaps were then de-epithelialized and inset.�The breast skin was then further revised using 42mm cookie cutters to create a new window for the skin paddle bilaterally. This resulted in a 4x4cm local tissue rearrangement on each side. The
incisions were then closed in layered fashion using 3-0 and 4-0 Monocryl suture.� All incisions were dressed with Dermabond glue.� Hand-held Doppler signals were found in the reconstructed breasts and these were marked with a 5-0 Prolene suture. A
BEATRIZ incisional wound VAC was applied to the abdominal incision.
The patient tolerated the procedure very well.� All counts were correct at the completion of the case.� The patient was then extubated uneventfully and transferred to the ICU in stable condition.
Dr. Wilks was my co-surgeon for this case.� His status as a co-surgeon was critical and allowing us to function as two separate teams.� This allowed us to operate simultaneously on both the breasts and on each side of the abdomen.� This was
essential for the appropriate safety and efficiency of this procedure.
Dr. Thacker was our assistant professor surgical technology for this case. She played a primary role in reconstructing the abdominal wall and her assistance was critical to allow for us to execute the surgery in a safe and timely manner.
[2025-01-25] MEDS: DILAUDID 0.5 MG IV (16:53)
[2025-01-25 16:59] LABS: AST (SGOT) 51 U/L (14-36); Albumin 3.7 g/dl (3.5-5.0); Alkaline Phosphatase 50 U/L (38-126); Blood Urea Nitrogen 9 mg/dl (7-17); Calcium 9.2 mg/dl (8.4-10.2); Carbon Dioxide 25 mmol/L (22-30); Chloride 105 mmol/L (98-107); Estimated Creatinine Clearance 109 ml/min; Glucose 149 mg/dl (70-99); Magnesium 1.8 mg/dl (1.6-2.3); Potassium 5.0 mmol/L (3.5-5.1); Sodium 137 mmol/L (135-145); Total Protein 6.2 g/dl (6.3-8.2); eGFR > 60.00
[2025-01-25] MEDS: LR 1000 IV ×2 (17:05→23:33)
[2025-01-25 17:08] LABS: ALT (SGPT) 40 U/L (0-35)
[2025-01-25] MEDS: TYLENOL 1000 MG PO ×2 (17:16→21:32)
[2025-01-25] MEDS: VALIUM 5 MG PO ×2 (17:16→21:33)
--- NOTE | 2025-01-25 19:21 | PTCARENOTE ---
Received pt directly back from the OR shortly after 4pm. Pt was initially lethargic on simple mask with stable vss. Within the initial hour, pt was easily arousable, tolerating clears. Forgetful after anesthesia, but easily reorients. Medicated
as charted. C/o pain in abdomen when coughing, as well as discomfort in R shoulder. Admission completed. Pt assisted to eat dinner. and children in to visit and updated. Bedside check done with oncoming nurse. no changes.
[2025-01-25] MEDS: ZOFRAN 4 MG IV (19:29)
--- NOTE | 2025-01-25 20:00 | PTCARENOTE ---
rn enterostomal, pt aaox3, andriy golden intact, paddle checks WNL. DARIELA drains x 4 WNL, emptied. RH IV x 2 intact- IVF infusing as ordered. Sat 96% on 6LNC. Sandoval draining adequate amt yellow urine. assisted w/repositioning, beach chair position
maintained. POC discussed, call tomas with pt. family at bedside.
[2025-01-25] MEDS: ANCEF 5 IV (21:00)
[2025-01-25] MEDS: ROXICODONE 5 MG PO (23:31)
[2025-01-25] MEDS: NEURONTIN 300 MG PO (23:31)
[2025-01-26] VITALS (22 sets, daily range): BP systolic 93–119; BP diastolic 47–72; BMI 35.7
--- NOTE | 2025-01-26 | PTCARENOTE ---
prn oxycodone per MAR, no changes in pt assessment.
--- NOTE | 2025-01-26 04:00 | PTCARENOTE ---
no changes in pt assessment, paddle checks WNL as documented on work list.
[2025-01-26] MEDS: ANCEF 5 IV ×2 (04:16→12:07)
[2025-01-26 04:43] LABS: Hematocrit 31.9 % (37.0-47.0); Hemoglobin 10.4 g/dL (12.0-16.0); Mean Corp Hgb Conc. 32.6 g/dL (33.0-37.0); Mean Corpuscular Volume 83.7 fL (81.0-99.0); Nucleated Red Blood Cells % 0 %; Platelet Count 176 10^3/uL (130-400); Red Cell Dist. Width 14.1 % (11.5-14.5)
[2025-01-26 05:06] LABS: Blood Urea Nitrogen 10 mg/dl (7-17); Calcium 8.8 mg/dl (8.4-10.2); Carbon Dioxide 30 mmol/L (22-30); Chloride 106 mmol/L (98-107); Estimated Creatinine Clearance > 125 ml/min; Glucose 115 mg/dl (70-99); Potassium 4.4 mmol/L (3.5-5.1); Sodium 138 mmol/L (135-145); eGFR > 60.00
[2025-01-26] MEDS: ROXICODONE 5 MG PO ×3 (05:58→20:52)
[2025-01-26] MEDS: VALIUM 5 MG PO ×3 (07:37→22:17)
[2025-01-26] MEDS: ZOLOFT 100 MG PO (07:37)
[2025-01-26] MEDS: NEURONTIN 300 MG PO ×3 (07:37→23:54)
[2025-01-26] MEDS: COLACE 100 MG PO ×3 (07:37→22:17)
[2025-01-26] MEDS: LR 1000 IV (07:37)
[2025-01-26] MEDS: SENOKOT 8.6 MG PO ×2 (07:37→22:17)
[2025-01-26] MEDS: TYLENOL 1000 MG PO ×4 (07:50→22:17)
--- NOTE | 2025-01-26 08:00 | PTCARENOTE ---
pt received from previous rn- aox4, paddle checks with offgoing rn- wnl. 4 aaron drains with bloody drainage. ivf infusing as per order. pt on 2LNC. no complaints at this time. abdominal dressing c/d/i with valentin dressing. maguire with yellow urine. beach
chair position maintained. educated on plan of care, verbalized understanding. all safety precautions in place, call tomas within reach.
--- NOTE | 2025-01-26 08:23 | W.PN.INTV ---
Today's Communication / Plan
Recommendations
Pain control
Supplemental O2 as needed to keep SpO2 >90-94%
Encourage incentive spirometer
Postoperative management as per breast surgery + vascular surgery
Continue ICU level care for this patient that required q1hr flap checks. Can consider downgrade to telemetry later this evening if patient remains stable and flap checks can be reduced in frequency.
Assessment
-
Assessment: 49-year-old F with PMHx of left-sided invasive breast lobular carcinoma (Dx 01/26/2021 - ER/MT +, HER2 -) s/p lumpectomy + chemoradiation (2020), recurrent L-breast lobular carcinoma (ER+) s/p neoadjuvant chemotherapy + bilateral
mastectomy with immediate iron worker reconstruction, asthma and seasonal allergies who p/w elective breast reconstruction. Pt follows with Dr. Thacker with Breast Surgery as an outpatient - last visit 12/03/2024. She has Hx of left breast lumpectomy
with SNL mapping and biopsy on 02/23/2021. She had received chemotherapy in Fall 2020 through [facility] via Dr. Schroeder. She has also undergone radiation to her left breast. She underwent genetic testing in February 2021 and this
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 She continued to obtain mammogram + breast ultrasounds. Breast US on 07/12/2024 showed abnormal left axilla adenopathy. She
underwent US-core needle Bx of her left axillary LN on 07/16/2024 and pathology showed recurrent invasive lobular carcinoma, which was ER +, and MT and HER2 -. PET/CT on 07/29/2024 showed no evidence of metastasis. She has neoadjuvant chemo starting
on 08/18/[address] Schroeder. She completed her chemo, and she underwent bilateral mastectomy with targeted left axillary dissection with immediate prepectoral tissue iron worker reconstruction on 12/24/2024. Today, she is here for removal of her
expanders and for bilateral delayed FARIBA flap breast reconstruction. She also underwent right internal mammary LN biopsy, and removal of her right-sided port-A-cath. EBL was 150cc with no immediate complications. She was TRX to ICU
post-operatively, and Bioinformatics Specialist services consulted for additional recommendations/management.
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
allergies
Impression:
#Left breast lobular carcinoma (2020 - ER/MT +, HER2-) s/p lumpectomy + chemoradiation (2020), recurrent L-breast lobular carcinoma (ER+, MT and HER2-) s/p neoadjuvant chemotherapy + bilateral mastectomy with immediate iron worker reconstruction now
with right Port-A-Cath removal, bilateral tissue iron worker removal, bilateral capsulotomies and partial capsulectomies, bilateral delayed FARIBA flap breast reconstruction with bilateral local breast tissue rearrangement (POD #1)
#Iatrogenic ventral hernia s/p closure with mesh (POD #1)
#Mild intermittent asthma
#Hx of heterozygous NBN gene pathogenic variant s/p prophylactic BSO (06/2021) given her predisposition to ovarian and endometrial cancer
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
Plan:
Postoperative surgical intensive care unit monitoring
Follow up right internal mammary LN biopsy from OR on 01/25
Supplemental oxygen as needed to maintain SpO2 >90-94%
prn nebulized bronchodilators - not currently bronchospastic
Incentive spirometry encouraged 10x per hour for at least 4 hrs a day
Aspiration precautions
Pain control
Flap checks per vascular and breast surgery per protocol - currently q1hr
Maintain MAP>65
Replete electrolytes with K>4, Mg>2
Maintain euglycemia with goal BG 140-180
Breast surgery + vascular surgery following - correspondence and operative notes reviewed
Transfuse blood products as needed to keep Hb>7g/dL, and plt>50k (given post-operative status)
DVT prophylaxis: LMWH
Early nutrition
Early mobilization
Continue ICU level care for this patient that required q1hr flap checks.
Critical care statement: A total of 38 minutes of critical care time was provided for this patient today. This includes management of unstable vital signs, evaluation of the patient at bedside, reviewing the patient's pertinent medical records
including radiographs, microbiology, laboratory evaluations, and discussion with primary team, consultants, pharmacy, nutrition, physical therapy, case management, charge nurse, critical care nursing, and respiratory therapy.
Subjective Dataa
Subjective Data
Date of Service:
Date of Service: January 26, 2025
Chief Complaint: Bioinformatics Specialist Follow Up
Subjective:
Patient seen and evaluated this morning. Saturating 90%, BP 109/58 and heart rate 94. She feels well, although has abdominal discomfort as well as chest discomfort from recent operation. She otherwise denies SOB, YEH, nausea, fevers or chills.
Review of Systems
General: Other (Negative unless mentioned above)
Objective Data
Data Reviewed
Vital Signs / I&O / Oxygen:
Vital Signs
Temp Pulse Resp BP Pulse Ox
99.2 F 101 19 101/61 94
01/26/25 09:00 01/26/25 08:00 01/26/25 08:00 01/26/25 08:00 01/26/25 08:00
Intake and Output
01/25/25 01/26/25 01/27/25
06:59 06:59 06:59
Intake Total 2470 / 2595 250 / 250
Output Total 2348 / 2448 255 / 255
Balance 122 / 147 -5 / -5
SaO2 94
Nasal Cannula flow liters per 6
minute
Physical Exam
General: Respiratory Distress (negative), Comfortable, Chills (negative) and Sweats (negative)
HEENT: Normocephalic and Anicteric
Cardiovascular: S1-S2 and Peripheral Edema (negative)
Respiratory: Wheeze (negative), Crackles (Faint bibasilar rales heard during inspiration), Rhonchi (negative), Non-Labored Respirations and Stridor (negative)
GI: Soft, Non Distended, Tender and Normal Bowel Sounds
Neurology: AO x 3 and Tremors (negative)
Skin: Warm, Dry, Cyanosis (negative), Jaundice (negative) and Other (Bandage across abdomen with abdominal binder)
Labs/Micro/Reports
Lab Data
01/26/25 04:17
01/26/25 04:17
Laboratory Results
01/25/25
16:26
PT 14.1
INR 1.05
APTT 25.6
--- NOTE | 2025-01-26 08:41 | VNURNOTE ---
Chart reviewed. Patient is current with [facility]. Will continue to follow hospital course and DC plans.
--- NOTE | 2025-01-26 10:39 | PTCARENOTE ---
pt oob to chair, tolerated well, maguire removed per order. abdominal binder intact. pt tolerating diet. pt on room air.
--- NOTE | 2025-01-26 12:23 | CM ---
Initial assessment completed with patient with and son in room. Patient lives with her and 4 children (12-14-18-20 y/o) in a 2 story plus basement home with B/B on 2nd and 1/2 bath on 1st, 3 steps to enter. No DME or in-home
services. Does have HC-POA. No psychiatric hospitalizations. No service. 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 PCP is Dr. Kiara Whitlock with [facility]. Pharmacy is [facility] in [place],
[address] Discharge POC: Home with RN for drain care. Prefers [facility] Nurse Stephanie. Referral placed.
--- NOTE | 2025-01-26 12:28 | W.PN.PLAS ---
Today's Communication
-
OOB to chair
Sandoval out
Reg diet
PO pain control
Progress Note
Subjective Data
Doing well, no SOB
Subjective: Tolerating Regular Diet and Sandoval Removed
Objective Data
Vital Signs
Temp Pulse Resp BP Pulse Ox
99.2 F 103 25 119/61 89
01/26/25 10:41 01/26/25 11:00 01/26/25 11:00 01/26/25 11:00 01/26/25 11:00
Intake and Output
01/25/25 01/26/25 01/27/25
06:59 06:59 06:59
Intake Total 2470 / 2595 750 / 750
Output Total 2348 / 2448 1320 / 1320
Balance 122 / 147 -570 / -570
Intake:
Oral fluids 720 / 720
IV fluids (Total) 1750 / 1875 750 / 750
Lr 1,000 ml @ 125 mls/hr IV . 1750 / 1875 750 / 750
Q8H DAIN Rx#:[id number]
Output:
Drain Output (Total) 248 / 248 95 / 95
Left Abdomen 85 / 85 30 / 30
Left Chest 63 / 63 40 / 40
Right Abdomen 40 / 40 10 / 10
Right Chest 60 / 60 15 / 15
Urine, Sandoval 2100 / 2200 525 / 525
Urine, Voided 700 / 700
PEx:
NAD
NO increased WOB
Bilateral breast flaps well perfused in appearance
Doppler signals intact
No e/o venous congestion
Drains serosang with appropriate output
Lab Results
01/26/25 04:17
01/26/25 04:17
Assessment / Plan
s/p bilateral FARIBA flap breast reconstruction
POD 1 free flap protocol
lovenox/SCDs
--- NOTE | 2025-01-26 16:14 | PTCARENOTE ---
pt remains oob to chair, ambulating to bathroom with minimal assistance, assessment unchanged.
[2025-01-26] MEDS: LOVENOX 40 MG SC (16:57)
--- NOTE | 2025-01-26 20:00 | PTCARENOTE ---
Rec'd pt OOB to chair, resting comfortably and assist X1 to bathroom to void. Pain controlled with regimen and PRN meds. Pt with positive attitude, very cooperative. Afebrile. NSR on monitor. BP stable. Pulses palpable, no edema. Breast flap check
done with outgoing nurse. DARIELA output as documented. Assessment as documented. Room air/2L nasal cannula when asleep. Lungs clear. Tolerating regular diet. Sandoval removed on previous shift. Voiding appropriately in BR. Will monitor hourly.
[2025-01-27] VITALS (21 sets, daily range): BP systolic 97–115; BP diastolic 26–93; PULSE 100; O2SAT 94; BMI 35.5
--- NOTE | 2025-01-27 00:30 | PTCARENOTE ---
No change in previous assessment. Pt assisted back to bed X1, resting comfortably. Will monitor.
[2025-01-27 04:05] LABS: Hematocrit 30.7 % (37.0-47.0); Hemoglobin 9.9 g/dL (12.0-16.0)
[2025-01-27 04:28] LABS: Blood Urea Nitrogen 9 mg/dl (7-17); Calcium 8.1 mg/dl (8.4-10.2); Carbon Dioxide 31 mmol/L (22-30); Chloride 107 mmol/L (98-107); Estimated Creatinine Clearance > 125 ml/min; Glucose 98 mg/dl (70-99); Potassium 3.8 mmol/L (3.5-5.1); Sodium 139 mmol/L (135-145); eGFR > 60.00
--- NOTE | 2025-01-27 08:00 | PTCARENOTE ---
Received pt @ change of shift. Pt AAOX3 c/o moderate pain- medicated w prn- see SEP. SR on monitor. SpO2 96% on RA. Hypoactive BS, abd binder in place a DARIELA drain x4. Cont b/b. Assisted into BR x 2 for void and AM hygiene; awaiting BM. s/p BR
assisted into chair and tolerating position. Q1H paddle checks maintained- see flow sheet. Pt. instructed on how to report care concerns and call thom villela in reach.
[2025-01-27] MEDS: TYLENOL 1000 MG PO ×4 (08:02→23:00)
[2025-01-27] MEDS: SENOKOT 8.6 MG PO ×2 (08:02→21:00)
[2025-01-27] MEDS: VALIUM 5 MG PO ×3 (08:02→21:00)
[2025-01-27] MEDS: NEURONTIN 300 MG PO ×2 (08:02→16:41)
[2025-01-27] MEDS: ZOLOFT 100 MG PO (08:02)
[2025-01-27] MEDS: COLACE 100 MG PO ×3 (08:02→21:00)
[2025-01-27] MEDS: ROXICODONE 5 MG PO ×3 (08:07→21:00)
--- NOTE | 2025-01-27 08:11 | W.PN.INTV ---
Today's Communication / Plan
Recommendations
Pain control
Supplemental O2 as needed to keep SpO2 >90-94%
Encourage incentive spirometer
Postoperative management as per breast surgery + vascular surgery
PT
Continue ICU level care for this patient that requires q1hr flap checks. Can consider downgrade to telemetry once flap checks can be reduced in frequency.
Assessment
-
Assessment: 49-year-old F with PMHx of left-sided invasive breast lobular carcinoma (Dx 01/26/2021 - ER/OH +, HER2 -) s/p lumpectomy + chemoradiation (2020), recurrent L-breast lobular carcinoma (ER+) s/p neoadjuvant chemotherapy + bilateral
mastectomy with immediate factory assembler reconstruction, asthma and seasonal allergies who p/w elective breast reconstruction. Pt follows with Dr. Thacker with Breast Surgery as an outpatient - last visit 12/03/2024. She has Hx of left breast lumpectomy
with SNL mapping and biopsy on 02/23/2021. She had received chemotherapy in Fall 2020 through [facility] via Dr. Schroeder. She has also undergone radiation to her left breast. She underwent genetic testing in February 2021 and this
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 She continued to obtain mammogram + breast ultrasounds. Breast US on 07/12/2024 showed abnormal left axilla adenopathy. She
underwent US-core needle Bx of her left axillary LN on 07/16/2024 and pathology showed recurrent invasive lobular carcinoma, which was ER +, and OH and HER2 -. PET/CT on 07/29/2024 showed no evidence of metastasis. She has neoadjuvant chemo starting
on 08/18/[address] Schroeder. She completed her chemo, and she underwent bilateral mastectomy with targeted left axillary dissection with immediate prepectoral tissue factory assembler reconstruction on 12/24/2024. Today, she is here for removal of her
expanders and for bilateral delayed FARIBA flap breast reconstruction. She also underwent right internal mammary LN biopsy, and removal of her right-sided port-A-cath. EBL was 150cc with no immediate complications. She was TRX to ICU
post-operatively, and Pet Care Technician services consulted for additional recommendations/management.
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
allergies
Impression:
#Left breast lobular carcinoma (2020 - ER/OH +, HER2-) s/p lumpectomy + chemoradiation (2020), recurrent L-breast lobular carcinoma (ER+, OH and HER2-) s/p neoadjuvant chemotherapy + bilateral mastectomy with immediate factory assembler reconstruction now
with right Port-A-Cath removal, bilateral tissue factory assembler removal, bilateral capsulotomies and partial capsulectomies, bilateral delayed FARIBA flap breast reconstruction with bilateral local breast tissue rearrangement (POD #2)
#Iatrogenic ventral hernia s/p closure with mesh (POD #2)
#Mild intermittent asthma
#Hx of heterozygous NBN gene pathogenic variant s/p prophylactic BSO (06/2021) given her predisposition to ovarian and endometrial cancer
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
Plan:
Postoperative surgical intensive care unit monitoring
Follow up right internal mammary LN biopsy from OR on 01/25
Supplemental oxygen as needed to maintain SpO2 >90-94%
prn nebulized bronchodilators - not currently bronchospastic
Incentive spirometry encouraged 10x per hour for at least 4 hrs a day
Aspiration precautions
Pain control
Flap checks per vascular and breast surgery per protocol - currently q1hr until tonight
Maintain MAP>65
Replete electrolytes with K>4, Mg>2
Maintain euglycemia with goal BG 140-180
Breast surgery + vascular surgery following - correspondence and operative notes reviewed
Transfuse blood products as needed to keep Hb>7g/dL, and plt>50k (given post-operative status)
Given her interstitial lung abnormalities seen on imaging which is suspected to be from her prior chemotherapy from Taxol, recommend outpatient pulmonary office follow-up with full PFTs + 6MWT
DVT prophylaxis: LMWH
Early nutrition
Early mobilization with PT
Continue ICU level care for this patient that required q1hr flap checks.
Critical care statement: A total of 42 minutes of critical care time was provided for this patient today. This includes management of unstable vital signs, evaluation of the patient at bedside, reviewing the patient's pertinent medical records
including radiographs, microbiology, laboratory evaluations, and discussion with primary team, consultants, pharmacy, nutrition, physical therapy, case management, charge nurse, critical care nursing, and respiratory therapy.
Subjective Dataa
Subjective Data
Date of Service:
Date of Service: January 27, 2025
Chief Complaint: Pet Care Technician Follow Up
Subjective:
Patient was seen and evaluated this morning. Patient's , Hawk, present at bedside. All questions were answered. Her abdominal discomfort is better today. Still unable to take in a deep breath or cough due to throat pain. Currently on
room air breathing comfortably, saturating 92-93%, with BP 114/62 and heart rate 104.
Review of Systems
General: Other (Negative unless mentioned above)
Objective Data
Data Reviewed
Vital Signs / I&O / Oxygen:
Vital Signs
Temp Pulse Resp BP Pulse Ox
98.5 F 103 18 110/62 98
01/27/25 08:17 01/27/25 09:00 01/27/25 09:00 01/27/25 09:00 01/27/25 09:38
Intake and Output
01/26/25 01/27/25 01/28/25
06:59 06:59 06:59
Intake Total 2470 / 2595 1230 / 1230 360 / 360
Output Total 2348 / 2448 1480 / 1480
Balance 122 / 147 -250 / -250 360 / 360
SaO2 98
Nasal Cannula flow liters per 2
minute
Physical Exam
General: Respiratory Distress (negative), Comfortable, Chills (negative) and Sweats (negative)
HEENT: Normocephalic and Anicteric
Cardiovascular: S1-S2 and Peripheral Edema (negative)
Respiratory: Wheeze (negative), Crackles (Inspiratory rales heard from bases to middle lung forte bilaterally), Rhonchi (negative), Non-Labored Respirations and Stridor (negative)
GI: Soft, Non Distended, Tender and Normal Bowel Sounds
Neurology: AO x 3 and Tremors (negative)
Skin: Warm, Dry, Cyanosis (negative), Jaundice (negative) and Other (Bandage across abdomen with abdominal binder)
Labs/Micro/Reports
Lab Data
01/27/25 03:54
01/27/25 03:54
--- NOTE | 2025-01-27 10:26 | W.PN.PLAS ---
Today's Communication
-
PT/OT
48 hours q1h flap check ends this evening
Anticipate discharge to home tomrrow
Progress Note
Subjective Data
Doing well
Denies SOB
Subjective: Tolerating Regular Diet and Sandoval Removed
Objective Data
Vital Signs
Temp Pulse Resp BP Pulse Ox
98.5 F 103 18 110/62 98
01/27/25 08:17 01/27/25 09:00 01/27/25 09:00 01/27/25 09:00 01/27/25 09:38
Intake and Output
01/26/25 01/27/25 01/28/25
06:59 06:59 06:59
Intake Total 2470 / 2595 1230 / 1230 360 / 360
Output Total 2348 / 2448 1480 / 1480
Balance 122 / 147 -250 / -250 360 / 360
Intake:
Oral fluids 720 / 720 480 / 480 360 / 360
IV fluids (Total) 1750 / 1875 750 / 750
Lr 1,000 ml @ 125 mls/hr IV . 1750 / 1875 750 / 750
Q8H DAIN Rx#:[id number]
Output:
Drain Output (Total) 248 / 248 255 / 255
Left Abdomen 85 / 85 80 / 80
Left Chest 63 / 63 70 / 70
Right Abdomen 40 / 40 45 / 45
Right Chest 60 / 60 60 / 60
Urine, Sandoval 2100 / 2200 525 / 525
Urine, Voided 700 / 700
Other:
Number of approximated MODERATE 1 1
amounts of urine
Number of approximated LARGE 1
amounts of urine
PEx:
NAD
NO increased WOB
Bilateral breast flaps well perfused in appearance
Doppler signals intact
No e/o venous congestion
Drains serosang with appropriate output
Lab Results
01/27/25 03:54
01/27/25 03:54
Assessment / Plan
s/p bilateral FARIBA flap breast reconstruction
POD 2 free flap protocol
jose/GREGORYs
--- NOTE | 2025-01-27 13:10 | PTCARENOTE ---
Pt. remains OOB to chair; walked halls w PT and back to chair; tolerating position. Q1H paddle signals- see flow sheet. No changes in assessment from previous. @ bedside. Call tomas remains w in reach.
--- NOTE | 2025-01-27 15:45 | CM ---
Patient for discharge tomorrow 01/28/25, with HH RN (prefers nurse Brown) services. Therapy recommendation for HH vs NN. Patient is declining in-home PT/OT. and adult children will be able to assist patient.
[2025-01-27] MEDS: LOVENOX 40 MG SC (17:47)
--- NOTE | 2025-01-27 18:04 | PTCARENOTE ---
No changes since pervious assessment. Q1H paddle checks ongoing- see flow sheet. Remains OOB to chair, tolerating activity. Call thom villela in reach.
--- NOTE | 2025-01-28 00:30 | PTCARENOTE ---
No change in previous assessment. Strong doppler signals B/L paddles. Pt resting comfortably, pain well controlled. Will monitor.
[2025-01-28] MEDS: NEURONTIN 300 MG PO ×2 (01:24→07:56)
[2025-01-28 02:17] VITALS: BP 122/35
--- NOTE | 2025-01-28 07:02 | W.PN.UPDATE ---
Update Note
Progress Note Update
The patient is POD #3 S/P bilateral FARIBA flaps and removal of portacath. She is doing well and fine for discharge. Ok to shower today.
Will see Dr. Mae on Friday and myself in 3 weeks. Wound dressings in place and dry. Flaps soft with good perfusion.
[2025-01-28] MEDS: TYLENOL 1000 MG PO (07:55)
[2025-01-28] MEDS: COLACE 100 MG PO (07:56)
[2025-01-28] MEDS: ROXICODONE 5 MG PO (07:56)
[2025-01-28] MEDS: SENOKOT 8.6 MG PO (07:56)
[2025-01-28] MEDS: VALIUM 5 MG PO (07:56)
[2025-01-28] MEDS: ZOLOFT 100 MG PO (07:57)
--- NOTE | 2025-01-28 07:59 | PTCARENOTE ---
0700 care assumed. pt comfortably oob chair. Oxocodone adm PRN order.
--- NOTE | 2025-01-28 08:22 | W.PN.INTV ---
Today's Communication / Plan
Recommendations
Pain control
Keep SpO2 >90-94%
Encourage incentive spirometer
Postoperative management as per breast surgery + vascular surgery
PT
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
Patient is being prepared for discharge home. No additional recommendations at this time. Food Beverage Manager/Pulmonary service will now sign off. Please reconsult if there are any additional questions/concerns, or if patient's respiratory status
deteriorates.
Assessment
-
Assessment: 49-year-old F with PMHx of left-sided invasive breast lobular carcinoma (Dx 01/26/2021 - ER/AZ +, HER2 -) s/p lumpectomy + chemoradiation (2020), recurrent L-breast lobular carcinoma (ER+) s/p neoadjuvant chemotherapy + bilateral
mastectomy with immediate supervisor correspondence section reconstruction, asthma and seasonal allergies who p/w elective breast reconstruction. Pt follows with Dr. Thacker with Breast Surgery as an outpatient - last visit 12/03/2024. She has Hx of left breast lumpectomy
with SNL mapping and biopsy on 02/23/2021. She had received chemotherapy in Fall 2020 through [facility] via Dr. Schroeder. She has also undergone radiation to her left breast. She underwent genetic testing in February 2021 and this
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 She continued to obtain mammogram + breast ultrasounds. Breast US on 07/12/2024 showed abnormal left axilla adenopathy. She
underwent US-core needle Bx of her left axillary LN on 07/16/2024 and pathology showed recurrent invasive lobular carcinoma, which was ER +, and AZ and HER2 -. PET/CT on 07/29/2024 showed no evidence of metastasis. She has neoadjuvant chemo starting
on 08/18/[address] Schroeder. She completed her chemo, and she underwent bilateral mastectomy with targeted left axillary dissection with immediate prepectoral tissue supervisor correspondence section reconstruction on 12/24/2024. Today, she is here for removal of her
expanders and for bilateral delayed FARIBA flap breast reconstruction. She also underwent right internal mammary LN biopsy, and removal of her right-sided port-A-cath. EBL was 150cc with no immediate complications. She was TRX to ICU
post-operatively, and Food Beverage Manager services consulted for additional recommendations/management.
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
allergies
Impression:
#Left breast lobular carcinoma (2020 - ER/AZ +, HER2-) s/p lumpectomy + chemoradiation (2020), recurrent L-breast lobular carcinoma (ER+, AZ and HER2-) s/p neoadjuvant chemotherapy + bilateral mastectomy with immediate supervisor correspondence section reconstruction now
with right Port-A-Cath removal, bilateral tissue supervisor correspondence section removal, bilateral capsulotomies and partial capsulectomies, bilateral delayed FARIBA flap breast reconstruction with bilateral local breast tissue rearrangement (POD #3)
#Iatrogenic ventral hernia s/p closure with mesh (POD #3)
#Mild intermittent asthma
#Hx of heterozygous NBN gene pathogenic variant s/p prophylactic BSO (06/2021) given her predisposition to ovarian and endometrial cancer
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
Plan:
Postoperative surgical intensive care unit monitoring
Follow up right internal mammary LN biopsy from OR on 01/25
Supplemental oxygen as needed to maintain SpO2 >90-94%
prn nebulized bronchodilators - not currently bronchospastic
Incentive spirometry encouraged 10x per hour for at least 4 hrs a day
Aspiration precautions
Pain control
Flap checks per vascular and breast surgery per protocol - ending today, and pt being arranged for DC home
Maintain MAP>65
Replete electrolytes with K>4, Mg>2
Maintain euglycemia with goal BG 140-180
Breast surgery + vascular surgery following - correspondence and operative notes reviewed
Transfuse blood products as needed to keep Hb>7g/dL, and plt>50k (given post-operative status)
Given her interstitial lung abnormalities seen on imaging which is suspected to be from her prior chemotherapy from Taxol, recommend outpatient pulmonary office follow-up with full PFTs + 6MWT
- I will arrange for this
DVT prophylaxis: LMWH
Early nutrition
Early mobilization with PT
Patient is being prepared for discharge home. No additional recommendations at this time. Food Beverage Manager/Pulmonary service will now sign off. Thank you for allowing us to be involved in the care of this patient. Please reconsult if there are any
additional questions/concerns, or if patient's respiratory status deteriorates.
Total time spent today was 42 minutes for this encounter. Time includes reviewing laboratory test/imaging results, reviewing pertinent medical records, obtaining and reviewing medical history, performing an appropriate exam, ordering medications,
tests and procedures. Time also includes documentation of this encounter, coordinating patient care and communicating with other healthcare professionals. Total time does not include separately billed tests performed on this date of service.
Subjective Dataa
Subjective Data
Date of Service:
Date of Service: January 28, 2025
Chief Complaint: Food Beverage Manager Follow Up
Subjective:
Patient seen and evaluated this morning. She feels well, ready to be discharged home. No acute events reported overnight. Abdominal pain has improved.
Review of Systems
General: Other (Negative unless mentioned above)
Objective Data
Data Reviewed
Vital Signs / I&O / Oxygen:
Vital Signs
Temp Pulse Resp BP Pulse Ox
98.5 F 102 18 122/35 94
01/28/25 04:00 01/28/25 09:00 01/28/25 09:00 01/28/25 02:17 01/28/25 09:00
Intake and Output
01/27/25 01/28/25 01/29/25
06:59 06:59 06:59
Intake Total 1230 / 1230 960 / 960 240 / 240
Output Total 1480 / 1480 285 / 285
Balance -250 / -250 675 / 675 240 / 240
SaO2 94
Nasal Cannula flow liters per 2
minute
Physical Exam
General: Respiratory Distress (negative), Comfortable, Chills (negative) and Sweats (negative)
HEENT: Normocephalic and Anicteric
Cardiovascular: S1-S2 and Peripheral Edema (negative)
Respiratory: Wheeze (negative), Crackles (Inspiratory rales heard from bases to middle lung forte bilaterally), Rhonchi (negative), Non-Labored Respirations and Stridor (negative)
GI: Soft, Non Distended, Tender (Periumbilical region) and Normal Bowel Sounds
Neurology: AO x 3 and Tremors (negative)
Skin: Warm, Dry, Cyanosis (negative), Jaundice (negative) and Other (Bandage across abdomen with abdominal binder)
Labs/Micro/Reports
Lab Data
01/27/25 03:54
01/27/25 03:54
--- NOTE | 2025-01-28 12:26 | CM ---
Patient has been medically cleared for discharge to home with [facility] RN services. Patient declined HH PT/OT. will transport home.
--- NOTE | 2025-01-28 12:41 | PTCARENOTE ---
Discharge:
patient discharge home at 12:42; All discharge instruction given to patient and her . Peripheral lines removed. Patient reports of able to self administer Lovenox and drain J-Ps. Transportation provided by patient's . patient
transported to hospital's lobby via w/c
== END 2025-01-28 12:52 | disposition home health service (06) | DRG 581 ==
LOC: ICU 06:07
PROVIDERS: Nurse Practitioner Primary Care; ADMITTING PHYSICIAN Surgery Plastic and Reconstructive Surgery; CONSULT PHYSICIAN Internal Medicine Critical Care Medicine; REFERRING PHYSICIAN Surgery
PROC: 0HRV077 Replacement of Bilateral Breast using Deep Inferior Epigastric Artery Perforator Flap, Open Approach (ICD-10-PCS; 2025-01-25)
PROC: 0HPT0NZ Removal of Tissue Expander from Right Breast, Open Approach (ICD-10-PCS; 2025-01-25)
PROC: 07B80ZX Excision of Right Internal Mammary Lymphatic, Open Approach, Diagnostic (ICD-10-PCS; 2025-01-25)
PROC: 0JPT0WZ Removal of Totally Implantable Vascular Access Device from Trunk Subcutaneous Tissue and Fascia, Open Approach (ICD-10-PCS; 2025-01-25)
PROC: 0HPU0NZ Removal of Tissue Expander from Left Breast, Open Approach (ICD-10-PCS; 2025-01-25)
PROC: 0WUF0JZ Supplement Abdominal Wall with Synthetic Substitute, Open Approach (ICD-10-PCS; 2025-01-25)
PROC: 05PY33Z Removal of Infusion Device from Upper Vein, Percutaneous Approach (ICD-10-PCS; 2025-01-25)
DX: Z42.1 Encounter for breast reconstruction following mastectomy (principal); K43.9 Ventral hernia without obstruction or gangrene; J45.20 Mild intermittent asthma, uncomplicated; Z85.3 Personal history of malignant neoplasm of breast; Z92.3 Personal history of irradiation; Z90.13 Acquired absence of bilateral breasts and nipples; Z92.21 Personal history of antineoplastic chemotherapy; Z80.3 Family history of malignant neoplasm of breast
CPT/HCPCS: 71045; 80048; 80053; 82962; 83735; 84100; 85014; 85018; 85025; 85610; 85730; 88304; 93005; 97163; A4648; C1729; C1781

== ENCOUNTER → 2025-02-07 16:26 | Outpatient (REF) | payer OTHER, SELFPAY ==
[2025-02-07 17:05] LABS: Hematocrit 32.2 % (37.0-47.0); Hemoglobin 10.4 g/dL (12.0-16.0); Mean Corp Hgb Conc. 32.3 g/dL (33.0-37.0); Mean Corpuscular Volume 83.6 fL (81.0-99.0); Nucleated Red Blood Cells % 0 %; Platelet Count 305 10^3/uL (130-400); Red Cell Dist. Width 14.1 % (11.5-14.5)
[2025-02-07 17:21] LABS: ALT (SGPT) 18 U/L (0-35); AST (SGOT) 27 U/L (14-36); Albumin 3.6 g/dl (3.5-5.0); Alkaline Phosphatase 63 U/L (38-126); Blood Urea Nitrogen 11 mg/dl (7-17); Calcium 9.3 mg/dl (8.4-10.2); Carbon Dioxide 29 mmol/L (22-30); Chloride 106 mmol/L (98-107); Glucose 104 mg/dl (70-99); Potassium 4.6 mmol/L (3.5-5.1); Sodium 141 mmol/L (135-145); Total Protein 6.3 g/dl (6.3-8.2); eGFR > 60.00
== END ==
LOC: REG 16:26
PROVIDERS: ATTENDING PHYSICIAN Internal Medicine Hematology & Oncology; FAMILY PHYSICIAN Nurse Practitioner Family
DX: C50.412 Malignant neoplasm of upper-outer quadrant of left female breast (principal)
CPT/HCPCS: 36415; 80053; 85025

== ENCOUNTER → 2025-02-24 09:33 | Outpatient (REF) | payer OTHER, SELFPAY ==
[2025-02-24 10:18] LABS: Hematocrit 38.5 % (37.0-47.0); Hemoglobin 12.3 g/dL (12.0-16.0); Mean Corp Hgb Conc. 31.9 g/dL (33.0-37.0); Mean Corpuscular Volume 82.6 fL (81.0-99.0); Nucleated Red Blood Cells % 0 %; Platelet Count 281 10^3/uL (130-400); Red Cell Dist. Width 14.3 % (11.5-14.5)
[2025-02-24 10:21] LABS: HCG, Urine Qualitative Screen Negative
[2025-02-24 10:47] LABS: ALT (SGPT) 25 U/L (0-35); AST (SGOT) 30 U/L (14-36); Albumin 4.6 g/dl (3.5-5.0); Alkaline Phosphatase 61 U/L (38-126); Blood Urea Nitrogen 14 mg/dl (7-17); Calcium 9.6 mg/dl (8.4-10.2); Carbon Dioxide 29 mmol/L (22-30); Chloride 101 mmol/L (98-107); Glucose 118 mg/dl (70-99); Iron 54 ug/dl (37-170); Potassium 4.7 mmol/L (3.5-5.1); Sodium 138 mmol/L (135-145); Total Protein 7.6 g/dl (6.3-8.2); eGFR > 60.00
[2025-02-24 10:56] LABS: Total Iron Binding Capacity 316 ug/dl (265-497)
[2025-02-24 11:17] LABS: Ferritin 77.4 ng/ml (6.24-137)
== END ==
LOC: REG 09:33
PROVIDERS: ATTENDING PHYSICIAN Internal Medicine Hematology & Oncology; FAMILY PHYSICIAN Nurse Practitioner Family; OTHER PHYSICIAN Radiology Radiation Oncology
DX: C50.412 Malignant neoplasm of upper-outer quadrant of left female breast (principal); Z17.0 Estrogen receptor positive status [ER+]
CPT/HCPCS: 36415; 80053; 81025; 82728; 83540; 83550; 85025

== ENCOUNTER → 2025-04-29 07:48 | Outpatient (REF) | payer OTHER, SELFPAY ==
[2025-04-29 09:08] LABS: Hematocrit 40.4 % (37.0-47.0); Hemoglobin 13.1 g/dL (12.0-16.0); Mean Corp Hgb Conc. 32.4 g/dL (33.0-37.0); Mean Corpuscular Volume 81.1 fL (81.0-99.0); Nucleated Red Blood Cells % 0 %; Platelet Count 200 10^3/uL (130-400); Red Cell Dist. Width 14.7 % (11.5-14.5)
[2025-04-29 09:37] LABS: ALT (SGPT) 31 U/L (0-35); AST (SGOT) 29 U/L (14-36); Albumin 4.4 g/dl (3.5-5.0); Alkaline Phosphatase 61 U/L (38-126); Blood Urea Nitrogen 15 mg/dl (7-17); Calcium 9.6 mg/dl (8.4-10.2); Carbon Dioxide 29 mmol/L (22-30); Chloride 105 mmol/L (98-107); Glucose 124 mg/dl (70-99); Potassium 4.6 mmol/L (3.5-5.1); Sodium 138 mmol/L (135-145); Total Protein 7.6 g/dl (6.3-8.2); eGFR > 60.00
== END ==
LOC: REG 07:48
PROVIDERS: ATTENDING PHYSICIAN Internal Medicine Hematology & Oncology; FAMILY PHYSICIAN Family Medicine; REFERRING PHYSICIAN Surgery Plastic and Reconstructive Surgery
DX: C50.412 Malignant neoplasm of upper-outer quadrant of left female breast (principal)
CPT/HCPCS: 36415; 80053; 85025

== ENCOUNTER → 2025-05-10 07:38 | Outpatient (REF) | payer OTHER, SELFPAY | LOC: RCS 07:38 | PROVIDERS: ATTENDING PHYSICIAN Internal Medicine Hematology & Oncology; FAMILY PHYSICIAN Family Medicine; REFERRING PHYSICIAN Surgery Plastic and Reconstructive Surgery | DX: C50.412 Malignant neoplasm of upper-outer quadrant of left female breast (principal) | CPT/HCPCS: 93005 ==

== ENCOUNTER 2025-05-11 06:11 | Day surgery (SDC) | payer OTHER, SELFPAY ==
--- NOTE | 2025-05-06 14:21 | PTCARENOTE ---
Abnormal ECG done 01/25/25, reviewed by Dr Olvera, no further interventions requested.
[2025-05-11] VITALS (10 sets, daily range): BP systolic 109–130; BP diastolic 51–70; BMI 35.2
[2025-05-11] MEDS: NORMOSOL-R/PLASMALYTE-A 1000 IV (14:59)
[2025-05-11] MEDS: TYLENOL 1000 MG PO (14:59)
--- NOTE | 2025-05-11 17:37 | W.IMMPOSTOP ---
Surgical Immed Post Op Note
-
Primary Surgeon: PÉREZ Mae MD
Assisting Surgeon:
Pre-op Diagnosis: History of breast cancer, status post mastectomies
Post-op Diagnosis: Same
Procedure Performed: Revision of right reconstructed breast, fat grafting of bilateral reconstructed breast 120 cc each total 240 cc, suction assisted lipectomy of trunk, bilateral
Anesthesia Type: General
Specimen / Cultures: None
Estimated Blood Loss: 30 cc
Complications: None
Operative Findings: As expected
--- NOTE | 2025-05-11 17:38 | OR.RPT ---
Operative Report
Operative Report
Date of surgery: 05/11/2025
Surgeon: PÉREZ Mae MD
Preoperative diagnosis:
1. History of breast cancer
2. Status post radiation
3. 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
4. Status post FARIBA flap breast reconstruction
Postoperative diagnosis: Same
Procedure:
1. Mastopexy right breast
2. Suction assisted lipectomy of trunk, bilateral, lateral chest wall/breast
3. Fat grafting the bilateral reconstructed breasts, 240 cc total, donor site abdome
Anesthesia: General
Complications: None
EBL: 30 cc
Specimens: None
Indications for procedure: Patient is a 49-year-old female with a history of breast cancer status post prior radiation who underwent bilateral mastectomies and staged tree sapper to FARIBA flap breast reconstruction. She followed routine postoperative
course and healed well. She presented with asymmetry, some volume discrepancies and contour irregularities that she desired revision of. A plan was made for a combination mastopexy of the right breast followed by lateral contouring of the chest
wall and breast via suction assisted lipectomy. Fat grafting could then be performed with donor site bilateral abdomen and flanks into the superior medial aspects of the breast and used to fill any contour irregularities. She did have notable
tethered scar that are contributing to the asymmetries. Risk the procedure reviewed at length including fat necrosis, oil cyst, persistent asymmetry, donor site pain and morbidity, infection, hematoma, seroma. She understood these risk desire to
proceed
Procedure in detail: Patient was identified preoperatively and the surgical site was confirmed to be the bilateral breasts, lateral chest wall, bilateral abdomen and lateral flanks. All questions were answered and consents were confirmed. The
patient was marked in the upright position. She was taken back the operating placed supine on the table. Anesthesia was induced the patient was prepped and draped in usual sterile fashion using ChloraPrep solution. Timeout for patient safety was
performed was confirmed that preoperative antibiotics administered and bilateral SCDs were in place. Procedure began with the injection of tumescent solution consisting of 1 L normal saline with lidocaine and epinephrine. 2 L total was used and
distribute over the lateral chest wall bilateral abdominal wall and lateral flanks. While the tumescent was setting in, attention was drawn to the right side where the mastopexy was performed. Vertical wedge was excised at the tethered scar
dissection continued with Bovie electrocautery down to the chest wall. All tethered scar was released and a lateral backcut was performed to allow for advancement and coning of the breast in the typical vertical mastopexy fashion. Meticulous
hemostasis was ensured and a series of 2-0 Vicryl's were placed in the medial lateral pillars. Of note laterally some tethered scar was released in order to prevent recurrent contour deformity. Superficial wound was then closed with 3-0 Monocryl
INSORB stapler and 3-0 subcuticular. Attention was drawn back to the lateral chest wall where the suction assisted lipectomy of trunk was done as an adjunct procedure to breast reconstruction. The flap was overly full and the lateral breast
boundary and chest wall was not well-defined. A 5 mm basket cannula was used to separate the tissue and then lipo aspirate to create this lateral breast contour and eliminate redundant lateral chest wall tissue.
Following this, attention was drawn to the fat graft donor site of the bilateral lower abdomen and flanks. The pure graft System was utilized to process the lipo aspirate from the bilateral abdomen and flanks. A total of approximately 600 cc of
lipo aspirate was obtained. This was processed down into 240 cc of usable fat graft. The fat was rinsed with 1 L of lactated Ringer's. It was then distributed evenly between the bilateral breast to fill contour abnormalities in the chest wall and
add volume to correct asymmetry. Access sites were closed with a 5-0 fast as needed.
Patient tolerated the procedure well and was performed without complication, all counts were correct at the end the case. Wounds were dressed and compression garments were placed. She was extubated taken the PACU for further care.
[2025-05-11] MEDS: DILAUDID 0.5 MG IV ×2 (18:20→18:28)
[2025-05-11] MEDS: ROXICODONE 5 MG PO (19:36)
== END 2025-05-11 19:55 | disposition home or self-care (01) ==
LOC: SDS 06:11
PROVIDERS: ATTENDING PHYSICIAN Surgery Plastic and Reconstructive Surgery
DX: Z42.1 Encounter for breast reconstruction following mastectomy (principal); Z90.13 Acquired absence of bilateral breasts and nipples; Z85.3 Personal history of malignant neoplasm of breast; Z92.3 Personal history of irradiation
CPT/HCPCS: 19316; L8000

== ENCOUNTER → 2025-05-24 07:48 | Outpatient (REF) | payer OTHER, SELFPAY ==
[2025-05-24 09:24] LABS: Hematocrit 39.5 % (37.0-47.0); Hemoglobin 12.9 g/dL (12.0-16.0); Mean Corp Hgb Conc. 32.7 g/dL (33.0-37.0); Mean Corpuscular Volume 82.6 fL (81.0-99.0); Nucleated Red Blood Cells % 0 %; Platelet Count 237 10^3/uL (130-400); Red Cell Dist. Width 14.6 % (11.5-14.5)
[2025-05-24 09:49] LABS: ALT (SGPT) 25 U/L (0-35); AST (SGOT) 26 U/L (14-36); Albumin 4.3 g/dl (3.5-5.0); Alkaline Phosphatase 60 U/L (38-126); Blood Urea Nitrogen 13 mg/dl (7-17); Calcium 9.5 mg/dl (8.4-10.2); Carbon Dioxide 31 mmol/L (22-30); Chloride 102 mmol/L (98-107); Glucose 107 mg/dl (70-99); Potassium 4.8 mmol/L (3.5-5.1); Sodium 141 mmol/L (135-145); Total Protein 7.1 g/dl (6.3-8.2); eGFR > 60.00
== END ==
LOC: REG 07:48
PROVIDERS: ATTENDING PHYSICIAN Internal Medicine Hematology & Oncology; FAMILY PHYSICIAN Family Medicine; REFERRING PHYSICIAN Internal Medicine Cardiovascular Disease
DX: C50.412 Malignant neoplasm of upper-outer quadrant of left female breast (principal)
CPT/HCPCS: 36415; 80053; 85025

== ENCOUNTER → 2025-06-14 08:06 | Outpatient (REF) | payer OTHER, SELFPAY ==
[2025-06-14 08:57] LABS: Hematocrit 41.2 % (37.0-47.0); Hemoglobin 12.9 g/dL (12.0-16.0); Mean Corp Hgb Conc. 31.3 g/dL (33.0-37.0); Mean Corpuscular Volume 87.1 fL (81.0-99.0); Nucleated Red Blood Cells % 0 %; Platelet Count 203 10^3/uL (130-400); Red Cell Dist. Width 15.7 % (11.5-14.5)
[2025-06-14 16:19] LABS: ALT (SGPT) 26 U/L (0-35); AST (SGOT) 27 U/L (14-36); Albumin 4.4 g/dl (3.5-5.0); Alkaline Phosphatase 63 U/L (38-126); Blood Urea Nitrogen 13 mg/dl (7-17); Calcium 9.5 mg/dl (8.4-10.2); Carbon Dioxide 28 mmol/L (22-30); Chloride 103 mmol/L (98-107); Glucose 124 mg/dl (70-99); Magnesium 1.8 mg/dl (1.6-2.3); Potassium 4.4 mmol/L (3.5-5.1); Sodium 138 mmol/L (135-145); Total Protein 7.6 g/dl (6.3-8.2); eGFR > 60.00
== END ==
LOC: REG 08:06
PROVIDERS: ATTENDING PHYSICIAN Internal Medicine Hematology & Oncology; FAMILY PHYSICIAN Family Medicine; REFERRING PHYSICIAN Internal Medicine Cardiovascular Disease
DX: C50.412 Malignant neoplasm of upper-outer quadrant of left female breast (principal)
CPT/HCPCS: 36415; 80053; 83735; 84100; 85025; 93005

== ENCOUNTER → 2025-06-20 07:36 | Outpatient (REF) | payer OTHER, SELFPAY | LOC: RCS 07:36 | PROVIDERS: ATTENDING PHYSICIAN Internal Medicine Cardiovascular Disease; FAMILY PHYSICIAN Family Medicine; OTHER PHYSICIAN Internal Medicine Hematology & Oncology | DX: R00.0 Tachycardia, unspecified (principal); T45.1X5D Adverse effect of antineoplastic and immunosuppressive drugs, subsequent encounter | CPT/HCPCS: 93306; 93356 ==